=== PATIENT | male | born 1940 | race Caucasian/White ===

== ENCOUNTER 2024-12-27 17:24 | Inpatient (IN) | payer MEDICARE, SELFPAY ==
--- NOTE | ~2024-12-27 | CT_ITS ---
CLINICAL HISTORY: Abdominal pain, fever, vomiting CT abdomen and pelvis without contrast Comparison: None provided Findings: Limited evaluation without intravenous contrast. The lung bases are clear. Large hiatal hernia. The gallbladder is unremarkable. No significant biliary ductal dilatation. Unenhanced liver, spleen and pancreas within normal limits. Mild adrenal thickening on the right. Left adrenal is unremarkable. Bilateral severe hydronephrosis and hydroureter with no stones in the kidneys or along the course of the ureters. Bilateral perinephric stranding. Exophytic 5.7 cm cyst of the right kidney. Significantly distended urinary bladder extending above the umbilical level. Prostate enlarged and irregular and contains calcifications. No bowel obstruction, pneumoperitoneum, or pneumatosis. Moderate colonic and rectal stool suggestive of constipation no free fluid. Appendix not identified. No pericecal inflammation. Atherosclerotic vascular disease with no aneurysm of the abdominal aorta. No acute fracture. Degenerative changes of the spine. IMPRESSION: 1. Markedly distended urinary bladder with bilateral severe hydronephrosis and hydroureter with no ureteral stones. This could be due to bladder outlet obstruction. Correlate clinically. 2. Bilateral perinephric stranding. Superimposed infection not excluded. 3. Enlarged irregular prostate which is nonspecific, correlate with PSA level. 4. Pancolonic and rectal stool, correlate with constipation. 5. Large hiatal hernia and additional nonacute findings as described. This document has been electronically signed by: Janet Simmons MD on 12/27/2024 23:47:36
--- NOTE | ~2024-12-27 | XR_ITS ---
CLINICAL HISTORY: Constipation, abd pain 1 view abdomen Comparison: None provided Findings: Mildly dilated small bowel loops in mid abdomen. Moderate stool in the ascending colon in the rectum. No abnormal calcifications. Lung bases are clear. No acute fractures. IMPRESSION: 1. Moderate stool in ascending colon and rectum, correlate with constipation. 2. Mildly dilated small bowel loops in mid abdomen may represent mild ileus. This document has been electronically signed by: Janet Simmons MD on 12/27/2024 19:05:55
--- NOTE | ~2024-12-27 | XR_ITS ---
CLINICAL HISTORY: fever 1 view chest x-ray Comparison: None provided Findings: Normal size heart. No consolidation, significant pleural effusion or pneumothorax. Calcifications in left upper lobe. Hiatal hernia. No acute fracture. IMPRESSION: 1. No acute findings. This document has been electronically signed by: Janet Simmons MD on 12/27/2024 23:49:54
--- NOTE | ~2024-12-27 | CT_ITS ---
EXAMINATION: CT HEAD WITHOUT CONTRAST CLINICAL INFORMATION: Altered mental status COMPARISON: None available. TECHNIQUE: Contiguous axial imaging was performed from the skull base to vertex without intravenous administration of contrast. This CT examination was performed using dose optimization techniques as appropriate, variously including the following: *Automated exposure control *Adjustment of mA and/or kV according to patient size (this includes techniques or standardized protocols for targeted exams where dose is matched to indication/reason for exam; i.e. extremities or head) *Use of iterative reconstruction technique DLP: 802GY*cm FINDINGS: There is no acute ischemic change. There is no intracranial hemorrhage. There is no mass-effect or midline shift. There is mild generalized atrophy. Basal cisterns and ventricles are mildly prominent for cerebral volume. Orbits are symmetrical and unremarkable. Paranasal sinuses and mastoid air cells are pneumatized. There are no bony abnormalities. CT/CT head/brain wo IV con IMPRESSION: No acute intracranial abnormality. Mildly prominent ventricles relative to the a degree of mild atrophy Electronically signed by: Medardo Brantley MD 12/29/2024 11:21 AM EDT
[2024-12-27 17:55] VITALS: BP 192/102; PULSE 85; RESP 16; TEMP 35.9; O2SAT 99; BMI 24.1
--- NOTE | 2024-12-27 18:12 | ED_ITS ---
HPI - Abdominal Pain General Chief Complaint: Abdominal Pain Stated Complaint: Weakness, passed out, vomiting Time Seen by Provider: 12/27/24 21:58 Source: patient Mode of arrival: ambulatory Limitations: no limitations History of Present Illness ED Provider: Dr. Elvia Dickinson HPI narrative: Patient comes to the emergency room complaining of abdominal pain. Patient states that his stomach has been firm for couple of days. Denies having any bowel movements. According to the triage note, patient has been having vomiting, patient states that he has only been nauseous but has not had any vomiting. The patient Is poor historian. No family is at bedside at this time. Per triage note, seems that patient was lightheaded earlier today when they were shopping. Patient denies this. Patient's main complaint is abdominal discomfort. No diarrhea. Patient denies fever chills to his knowledge. Related Data Allergies Allergy/AdvReac Type Severity Reaction Status Date / Time No Known Allergies Allergy Verified 12/27/24 18:03 Review of Systems Review of Systems Constitutional : No Weight loss, No Fever, No Chills, No Night Sweats, No Fatigue, No Malaise ENT/Mouth : No Hearing loss, No Ear Pain, No Nasal Congestion, No Sinus Pain, No Hoarseness, No sore throat, No Rhinorrhea, No Swallowing Difficulty Eyes: No Eye Pain, No Swelling, No Redness, No Foreign Body, No Discharge, No Vision Changes Cardiovascular : No Chest Pain, No SOB, No Dyspnea on Exertion, No Orthopnea, No Edema, No Palpitations Respiratory : No Cough, No Sputum, No Wheezing, No Smoke Exposure, No Dyspnea Gastrointestinal : No Nausea, No Vomiting, No Diarrhea, No Constipation, No abdominal Pain, No Hematochezia, No Melena Genitourinary : Complaining of abdominal pain No Urinary Incontinence, No Urgency, No Flank Pain, No Urinary Flow Changes, No Hesitancy Musculoskeletal : No joint pain, No Myalgias, No Joint Swelling Skin : No Skin Lesions, No rash Neuro : No Weakness, No Numbness, No Paresthesias, No Loss of Consciousness, No Dizziness, No Headache Psych : No Anxiety/Panic, No Depression, No SI/HI/AH/VH, No Social Issues, Heme/Lymph: No Bruising, No Bleeding,No Lymphadenopathy Endocrine : No Polyuria, No Polydipsia, No Temperature Intolerance PMFSH Past Medical History Medical History Hyperlipidemia Hypertension Diabetes Social History Social History Smoked in Last 30 Days: No Use of substances other than those prescribed or required for medical reasons: No Advance Directives: No Advance Directives Information Provided: No Physical Exam ED Vital Signs: Vital Signs - 24 hr 12/27/24 17:55 12/27/24 21:36 12/27/24 22:45 Temperature 96.7 F L 101.4 F H 102.4 F H Pulse Rate 85 87 89 Respiratory Rate 16 16 18 Blood Pressure 192/102 H 171/94 H 157/83 H Pulse Oximetry 99 97 97 Oxygen Delivery Method Room Air Room Air Room Air 12/27/24 23:24 12/28/24 00:00 Temperature 100.4 F 99.1 F Pulse Rate 86 89 Respiratory Rate 17 14 Blood Pressure 167/81 H 160/74 H Pulse Oximetry 97 98 Oxygen Delivery Method Room Air Room Air BMI result Body Mass Index 24.1 Const Other: Appearance: Alert. Oriented X3. No acute distress. Eyes: Pupils equal, round and reactive to light. ENT: Pharynx normal. Neck: Normal inspection. Neck supple. No lymph nodes noted. No crepitus CVS: Normal heart rate and rhythm. Pulses normal. Normal S1 and S2 Respiratory: No respiratory distress. Breath sounds normal. No Wheezing. No rales Abdomen: Soft significantly distended, diffuse discomfort to palpation, no flank pain Skin: Skin warm and dry. Normal skin color. Normal skin turgor. Extremities: No lower extremity edema. No Lacerations. No Rash Neuro: Oriented X 3. No motor deficit. No sensory deficit. Moving all extremities. No slurred speech. CN 2 through 12 grossly intact Psych: calm, cooperative, normal affect Course Course Course Narrative: 12/27/241812 FEI Arellano This is a Rapid Medical Examination (RME) performed by Roman Anderson PA-C in triage. Full HPI, ROS, assessment and treatment plan per primary provider in the Main ED. Hx: 83 yo M hx of T2DM, HTN, HLD here for eval of constipation, vomiting, right sided abd pain, increased weakness which began while shopping today. no bm in 2 days. Plan: labs, kub, UA Medical Decision Making Medical Decision Making MDM Narrative: I was informed by the patient's nurse that the patient has a fever of 101.4, blood pressure 171/94. Patient's labs show normal white blood cell count, hemoglobin decreased at 9.0, hematocrit 27.5, platelets 131. We do not have any previous labs for comparison. Patient's creatinine shows a potassium of 5.8, BUN of 50, creatinine of 4.20. Normal LFTs, normal lipase . Urinalysis negative for UTI, serology negative KUB: Moderate stool in ascending colon and rectum Patient states that to his knowledge she has never been told that he has any issues with his kidneys. Given the patient's fever and elevated creatinine, at this time, 22:20, sepsis protocol will be started. Patient empirically being treated with IV fluids and ceftriaxone. Patient complained of dysuria earlier today CT of the abdomen shows a significantly distended bladder. This is likely the cause of patient's elevated creatinine. vazquez insterted, 3200 cc were obtained 00:30 FOCUS exam was done Differential Diagnosis Differential Diagnoses: The differential diagnosis associated with the presentation includes (UTI, pyelonephritis, pneumonia, SBO, urinary retention, bladder mass) Admission/Observation Consideration of admission/observation: Escalation of care including admission/observation considered Lab Data MDM Lab Attestation statement: I reviewed the patient's lab results. 12/27/24 18:34 12/27/24 18:34 Labs: Lab Results 12/27/24 12/27/24 12/27/24 Range/Units 18:34 21:38 22:42 WBC 8.0 (4.8-10.8) X10*3/uL RBC 2.91 L (4.60-5.80) X10*6/uL Hgb 9.0 L (14.0-18.0) g/dl Hct 27.5 L (42.0-52.0) % MCV 94.5 (80.0-98.0) fL MCH 30.9 (27.0-33.0) pg MCHC 32.7 (31.0-36.0) g/dl RDW 12.7 (11.0-16.0) % Plt Count 131 L (160-400) X10*3/uL MPV 11.3 (9.4-12.4) fL Immature Gran % (Auto) 0.3 (0.0-0.4) % Neut % (Auto) 82.1 H (45-73) % Lymph % (Auto) 11.9 L (20-40) % [place] % (Auto) 5.0 (2-11) % Eos % (Auto) 0.3 (0-4) % Baso % (Auto) 0.4 (0-2) % Lymph # (Auto) 1.0 L (1.2-4.9) X10*3/uL [place] # (Auto) 0.4 (0.1-1.2) X10*3/uL Eos # (Auto) 0.0 (0.0-0.4) X10*3/uL Baso # (Auto) 0.0 (0.0-0.2) X10*3/uL Abs Immat Gran (auto) 0.02 (0.00-0.03) X10*3/uL Absolute Neuts (auto) 6.5 (2.0-8.3) x10*3/uL Absolute Nucleated RBC 0.000 (0.0-0.012) X10*3/uL Nucleated RBC % (auto) 0.0 (0.0-0.2) /100WBC Sodium 141 (135-145) mmol/L Potassium 5.8 H (3.3-5.1) mmol/L Chloride 112 H (96-108) mmol/L Carbon Dioxide 16 L (22-29) mmol/L Anion Gap 19 (12-20) BUN 50 H (9-16) mg/dL Creatinine 4.20 H* (0.5-1.4) mg/dL Estim Creat Clear Calc 15.1 Estimated GFR 14 Random Glucose 115 (60-115) mg/dL Lactic Acid 1.1 (0.5-2.0) mmol/L Calcium 9.7 (8.4-10.2) mg/dL Magnesium 2.1 (1.6-2.6) mg/dL Total Bilirubin 0.5 (0.0-1.0) mg/dL AST 29 (5-37) U/L ALT 13 (0-40) U/L Alkaline Phosphatase 51 (39-117) U/L Total Protein 8.3 H (6.5-8.0) g/dL Albumin 4.8 (3.5-5.0) g/dL Lipase 71 (8-78) U/L Urine Color Yellow Urine Appearance Clear Urine pH 6.5 (5.0-9.0) Ur Specific [place] 1.010 (1.005-1.025) Urine Protein 30 (1+) H (Neg-Trace) mg/dL Urine Glucose (UA) Negative (Negative) mg/dL Urine Ketones Negative (Negative) mg/dL Urine Blood Negative (Negative) Urine Nitrite Negative (Negative) Ur Leukocyte Esterase Trace H (Negative) Urine RBC 0-2 (0-2) /HPF Urine WBC 0-5 (0-5) /HPF Ur Squamous Epith Cells 0-2 (0-2) /HPF Urine Bacteria None Seen (None Seen) Hyaline Casts 0-2 (0-2) /LPF Influenza Type A (PCR) NEGATIVE (Negative) Influenza Type B (PCR) NEGATIVE (Negative) RSV RNA Qual (PCR) NEGATIVE (Negative) SARS-CoV-2 RNA (RT-PCR) NEGATIVE (Negative) Medications Administered Discontinued Medications Generic Name Dose Route Start Last Admin Trade Name Sudhakarq PRN Reason Stop Dose Admin Ceftriaxone Sodium 1 gm 12/27/24 22:06 12/27/24 22:45 Ceftriaxone Sodium 1 Gm Vial IVPUSH 12/27/24 22:07 1 gm ONCE ONE Administration Sodium Chloride 2,422.17 mls @ 2,422.17 mls/hr 12/27/24 22:06 12/27/24 22:45 Ns 30 ml/kg infuse over 1 hr (2422.17 ml) 12/27/24 23:05 2,422.17 mls/hr IV Administration .Q1H STA Lidocaine HCl 10 ml 12/27/24 22:30 12/27/24 22:35 Lidocaine Hcl 2 % Urojet 10 Ml Jel.Pf.[place] TOPICAL 12/27/24 22:31 10 ml ONCE ONE Administration Critical Care Time Critical Care Time Critical Care Time: Yes Total Critical Care Time: 60 Attestation: I have personally provided critical care time. Time includes review of lab data, radiology results, discussion with consultants, and monitoring for potential decompensation. Intervention performed as documented. Discharge Plan Discharge Clinical Impression: LUDIN (acute kidney injury), Abdominal pain, Acute hyperkalemia, Acute urinary retention Patient Disposition: Admitted As Inpatient Print Language: Korean
[2024-12-27 18:39] LABS: MANUAL DIFF FLAG NO
[2024-12-27 18:50] LABS: Hematocrit 27.5 % (42.0-52.0); Hemoglobin 9.0 g/dl (14.0-18.0); Imm Gran Abs Auto 0.02 X10*3/uL (0.00-0.03); Imm Gran Pct Auto 0.3 % (0.0-0.4); Lymphocytes Absolute Auto 1.0 X10*3/uL (1.2-4.9); Mean Corpuscular HGB Conc 32.7 g/dl (31.0-36.0); Mean Corpuscular Hemoglobin 30.9 pg (27.0-33.0); Mean Corpuscular Volume 94.5 fL (80.0-98.0); NRBC Abs Auto 0.000 X10*3/uL (0.0-0.012); NRBC Pct Auto 0.0 /100WBC (0.0-0.2); Platelet Count 131 X10*3/uL (160-400); Red Blood Count 2.91 X10*6/uL (4.60-5.80); White Blood Count 8.0 X10*3/uL (4.8-10.8)
--- NOTE | 2024-12-27 19:10 | PC.NURSE ---
Critical lab taken for patient - creatinine 4.2, Pit provider Teresa made aware.
[2024-12-27 19:11] LABS: Alanine Aminotransferase 13 U/L (0-40); Albumin Level 4.8 g/dL (3.5-5.0); Alkaline Phosphatase 51 U/L (39-117); Anion Gap 19 (12-20); Aspartate Amino Transferase 29 U/L (5-37); Blood Urea Nitrogen 50 mg/dL (9-16); Calcium 9.7 mg/dL (8.4-10.2); Carbon Dioxide 16 mmol/L (22-29); Chloride 112 mmol/L (96-108); Creatinine Clr Calc Pharmacy 15.1; Estimated Glomerular Filt Rate 14; Lipase 71 U/L (8-78); Magnesium 2.1 mg/dL (1.6-2.6); Potassium 5.8 mmol/L (3.3-5.1); Sodium 141 mmol/L (135-145); Total Protein 8.3 g/dL (6.5-8.0)
[2024-12-27 19:37] LABS: Resp Syncy Virus RNA Qual PCR NEGATIVE (Negative); SARS COV2 PCR INHOUSE NEGATIVE (Negative)
[2024-12-27 21:36] VITALS: BP 171/94; PULSE 87; RESP 16; TEMP 38.6; O2SAT 97
[2024-12-27 21:47] LABS: Appearance Urine Clear; Glucose Urine UA Negative (Negative); PH 6.5 (5.0-9.0); Specific Gravity - Urine 1.010 (1.005-1.025); UMIC TRIGGER UACC YES
--- NOTE | 2024-12-27 22:33 | ECG_ITS ---
Test Reason : HYPER K Blood Pressure : */* mmHG Vent. Rate : 89 BPM Atrial Rate : 89 BPM P-R Int : 152 ms QRS Dur : 92 ms QT Int : 362 ms P-R-T Axes : 59 22 47 degrees QTcB Int : 440 ms Normal sinus rhythm Normal ECG No previous ECGs available Referred By: Elvia Dickinson Electronically Signed By: EMIL MATA
[2024-12-27] MEDS: Lidocaine HCl 2 % Urojet 10 ML JEL.PF.APP TOPICAL (22:35)
[2024-12-27 22:45] VITALS: BP 157/83; PULSE 89; RESP 18; TEMP 39.1; O2SAT 97
[2024-12-27] MEDS: SODIUM CHLORIDE 2422.17 ML IV (22:45)
[2024-12-27 23:24] VITALS: BP 167/81; PULSE 86; RESP 17; TEMP 38; O2SAT 97
--- NOTE | 2024-12-27 23:24 | PC.NURSE ---
this rn assumed care of pt at this time, vazquez remains draining at this time, vital signs updated, pt offers no complaints at this time. fluids administering per mar
[2024-12-28] VITALS (14 sets, daily range): BP systolic 119–160; BP diastolic 58–89; PULSE 68–98; RESP 14–20; TEMP 36.2–37.4; O2SAT 96–100; BMI 22.8
--- NOTE | 2024-12-28 00:11 | PC.NURSE ---
20g placed in right forearm, pt assisted in bed change noted to have small bm.
--- NOTE | 2024-12-28 00:44 | PM.IMHP ---
History of Present Illness Date of Service: 12/28/24 Chief Complaint: Abd pain This is a 84-year-old male with pertinent history of mld-pxdimim-aowlzcbiu diabetes mellitus, hypertension, mixed hyperlipidemia who presents to the emergency department for evaluation of abdominal pain and difficulty urinating. Patient is a poor historian. History obtained with the help of ER provider and chart review. Patient states he has been having abdominal pain and difficulty with urination. Also has been having difficulty with bowel movements. States he is able to pee only a little bit at a time. Denies nausea or vomiting. Unable to obtain complete review of systems. In the emergency department, serum creatinine found to be 4.2 and potassium 5.8. Imaging with bilateral severe hydronephrosis and hydroureter. Review of Systems Review of Systems: Yes Unobtainable due to mental status [facility] Medical History Hyperlipidemia Hypertension Diabetes Pertinent family history: Unable to obtain Social History Smoked in Last 30 Days: No Use of substances other than those prescribed or required for medical reasons: No Advance Directives: No Advance Directives Information Provided: No Meds Allergies Allergy/AdvReac Type Severity Reaction Status Date / Time No Known Allergies Allergy Verified 12/27/24 18:03 Physical Exam Vital Signs and Narrative: Vital Signs: Last Vital Signs Temp 99.1 F 12/28/24 00:00 Pulse 89 12/28/24 00:00 Resp 14 12/28/24 00:00 BP 160/74 H 12/28/24 00:00 Pulse Ox 98 12/28/24 00:00 O2 Del Method Room Air 12/28/24 00:00 BMI result Body Mass Index 24.1 Elderly male lying in bed in no distress Neck supple, no JVD Regular rate and rhythm, S1-S2 heard Regular breath sounds bilaterally, no wheezing or crackles appreciated Abdomen mood distention, no rigidity, no tenderness Patient is awake, alert and oriented x2 ; no focal motor deficit Psych: Normal mood No pedal edema Results Labs 12/27/24 18:34 12/27/24 18:34 Labs: Laboratory Results - last 24 hr 12/27/24 12/27/24 12/27/24 18:34 21:38 22:42 MCV 94.5 MCH 30.9 MCHC 32.7 RDW 12.7 Plt Count 131 L MPV 11.3 Immature Gran % (Auto) 0.3 Neut % (Auto) 82.1 H Lymph % (Auto) 11.9 L [place] % (Auto) 5.0 Eos % (Auto) 0.3 Baso % (Auto) 0.4 Lymph # (Auto) 1.0 L [place] # (Auto) 0.4 Eos # (Auto) 0.0 Baso # (Auto) 0.0 Abs Immat Gran (auto) 0.02 Absolute Neuts (auto) 6.5 Absolute Nucleated RBC 0.000 Nucleated RBC % (auto) 0.0 Anion Gap 19 Estim Creat Clear Calc 15.1 Estimated GFR 14 Random Glucose 115 Lactic Acid 1.1 Calcium 9.7 Magnesium 2.1 Total Bilirubin 0.5 AST 29 ALT 13 Alkaline Phosphatase 51 Total Protein 8.3 H Albumin 4.8 Lipase 71 Urine Color Yellow Urine Appearance Clear Urine pH 6.5 Ur Specific [place] 1.010 Urine Protein 30 (1+) H Urine Glucose (UA) Negative Urine Ketones Negative Urine Blood Negative Urine Nitrite Negative Ur Leukocyte Esterase Trace H Urine RBC 0-2 Urine WBC 0-5 Ur Squamous Epith Cells 0-2 Urine Bacteria None Seen Hyaline Casts 0-2 Influenza Type A (PCR) NEGATIVE Influenza Type B (PCR) NEGATIVE RSV RNA Qual (PCR) NEGATIVE SARS-CoV-2 RNA (RT-PCR) NEGATIVE Assessment and Plan (1) LUDIN (acute kidney injury): Status: Acute (2) Acute urinary retention: Status: Acute (3) Acute hyperkalemia: Status: Acute Plan This is a 84-year-old male with pertinent history of zkn-nuabjrb-zlsksdwat diabetes mellitus, hypertension, mixed hyperlipidemia who presents to the emergency department for evaluation of abdominal pain and difficulty urinating. #. Severe bilateral hydronephrosis and hydroureter due to bladder outlet obstruction: Whyte inserted in the ER with drainage of 3200 cc of urine. Consulting Urology. Initiated Flomax #. Elevated creatinine: Acute kidney injury (likely), post renal versus CKD: Unknown baseline. Monitor and avoid nephrotoxins #. Hyperkalemia in the setting of above. Given temporizing measures in the ER #. Constipation: Ordered Dulcolax suppository. May need enema in a.m. #. Tte-oisopeg-kkhosetik type 2 diabetes mellitus: Initiating Accu-Cheks sliding scale insulin #. Mixed hyperlipidemia: On statin #. Hypertension: Hold lisinopril in the setting of LUDIN Med rec pending DVT prophylaxis: Heparin Full code. Discussed with patient at bedside Admit as inpatient and will require two night minimum hospital stay for monitoring of kidney function, electrolytes (as above), which is not possible in a lesser acute setting. Quality Stroke Does the patient have a stroke diagnosis?: No VTE Prior VTE?: No VTE Risk Level:: Medical - moderate - high VTE Device Contraindication: Treatment Not Indicated VTE Drug Contraindication: N/A - Med Ordered
[2024-12-28] MEDS: Calcium Gluconate/NaCl,Iso-Osm 2 GM/100 ML PLAST..BAG IV (01:07)
[2024-12-28 01:16] LABS: Glucose, Whole Blood 109 mg/dL (60-115)
--- NOTE | 2024-12-28 01:22 | PC.NURSE ---
iv fluids continue to administer at this time, vss. pt medicated per mar.
--- NOTE | 2024-12-28 01:27 | PC.NURSE ---
at bedside with pt and pt family member
[2024-12-28 01:39] LABS: Glucose, Whole Blood 142 mg/dL (60-115)
--- NOTE | 2024-12-28 02:17 | PC.NURSE ---
pt urine output noted to be red. aware at this time. vss
--- NOTE | 2024-12-28 03:25 | MHC.EDTECH ---
This tech assumed care of pt at 0300am, rounded and introduced self to pt, vitals taken, patient appears comfortable,call choudhury in reach
[2024-12-28 04:55] LABS: Glucose, Whole Blood 97 mg/dL (60-115)
[2024-12-28 05:07] LABS: MANUAL DIFF FLAG NO
[2024-12-28 05:09] LABS: Hematocrit 25.8 % (42.0-52.0); Hemoglobin 8.6 g/dl (14.0-18.0); Imm Gran Abs Auto 0.03 X10*3/uL (0.00-0.03); Imm Gran Pct Auto 0.4 % (0.0-0.4); Lymphocytes Absolute Auto 1.2 X10*3/uL (1.2-4.9); Mean Corpuscular HGB Conc 33.3 g/dl (31.0-36.0); Mean Corpuscular Hemoglobin 31.5 pg (27.0-33.0); Mean Corpuscular Volume 94.5 fL (80.0-98.0); NRBC Abs Auto 0.000 X10*3/uL (0.0-0.012); NRBC Pct Auto 0.0 /100WBC (0.0-0.2); Platelet Count 126 X10*3/uL (160-400); Red Blood Count 2.73 X10*6/uL (4.60-5.80); White Blood Count 7.0 X10*3/uL (4.8-10.8)
[2024-12-28 05:28] LABS: Anion Gap 16 (12-20); Blood Urea Nitrogen 49 mg/dL (9-16); Calcium 9.1 mg/dL (8.4-10.2); Carbon Dioxide 17 mmol/L (22-29); Chloride 117 mmol/L (96-108); Creatinine Clr Calc Pharmacy 15.8; Estimated Glomerular Filt Rate 15; Potassium 4.9 mmol/L (3.3-5.1); Sodium 145 mmol/L (135-145)
[2024-12-28 06:08] LABS: Glucose, Whole Blood 103 mg/dL (60-115)
--- NOTE | 2024-12-28 06:12 | MHC.EDTECH ---
Rounds and vitals completed,emptied 1000MLS from Whyte, urine is bloody, RN aware
--- NOTE | 2024-12-28 06:32 | PC.NURSE ---
provider contacted via [employer] connect with image of pt urine color being bright red, provider remains aware and no new orders at this time
[2024-12-28 08:13] LABS: Glucose, Whole Blood 107 mg/dL (60-115)
[2024-12-28] MEDS: 0.9 % Sodium Chloride Flush 3 ML SYRINGE IVFLUSH ×3 (08:47→20:26)
--- NOTE | 2024-12-28 11:31 | PHA.MEDREC ---
Pharmacy Consult ? Medication Reconciliation Pharmacy has completed the medication reconciliation.Spoke with patients patient and his son. Son brought in med list.Notified provider med rec complete
[2024-12-28 11:39] LABS: Glucose, Whole Blood 141 mg/dL (60-115)
--- NOTE | 2024-12-28 13:59 | PM.EVENT ---
Event Note Date of Service: 12/28/24 Event Note: Pt seen examined, presented with urinary retention x 3 days, found to have large volume retention, LUDIN, vazquez inserted. Pending uro consult, also adding Nephro consult, track daily creatine Time Spent With Patient Time: Total time managing care of this patient today ____ minutes.
--- NOTE | 2024-12-28 14:30 | PM.CNNEP ---
History of Present Illness Reason for Consult Consult date: 12/28/24 Chief Complaint Chief complaint: Abd pain History of Present Illness Narrative: 84 y/o male with a medical history of diabetes, HTN, mixed HLD. Presented 12/27 with abdominal pain and urinary retention x3 days. Nephrology consulted for LUDIN. serum creatinine 4.2 and potassium 5.8 on presentation 6pm 12/27 CT abdomen/pelvis with bilateral, severe hydronephrosis and hydroureter without stones. Bilateral perinephritic stranding. Enlarged, irregular prostate. vazquez catheter inserted, drained 3200mL urine. Creatinine 6 hours later was slightly improved at 3.94. Patient reports he is feeling much better since urine was drained. Denies symptoms/complaints at this time. States he is not aware of having any baseline kidney disease. Sees his PCP every 6 months per pt and family. Review of Systems Review of Systems Yes all other systems are reviewed and are negative PMFSH Past Medical History Medical History Hyperlipidemia Hypertension Diabetes Social History Social History Patient Tobacco Use Status: Never used Tobacco Smoked in Last 30 Days: No Use of substances other than those prescribed or required for medical reasons: No Advance Directives: No Advance Directives Information Provided: No Meds Allergies Allergy/AdvReac Type Severity Reaction Status Date / Time No Known Allergies Allergy Verified 12/27/24 18:03 Active Medications: Current Medications Acetaminophen (Acetaminophen 325 Mg Tablet) 650 mg PO Q6H PRN PRN Reason: Pain, Mild 1-3,fever,headache Atorvastatin Calcium (Atorvastatin Calcium 80 Mg Tablet) 80 mg PO BEDTIME [facility] Calcium Carbonate (Calcium Carbonate 750 Mg Tab.Chew) 750 mg PO Q4H PRN PRN Reason: Heartburn Carvedilol (Carvedilol 12.5 Mg Tablet) 12.5 mg PO DAILY [facility]; Protocol Ceftriaxone Sodium (Ceftriaxone Sodium 1 Gm Vial) 1 gm IVPUSH Q24H [facility] Dextrose (Dextrose 50 % 25 Gm/50 Ml Syringe) 25 gm IVPUSH Q15M PRN; Protocol PRN Reason: per Hypoglycemia Standing Ord. Glucose (Glucose Gel 15 Gm Gel..Gram.) 15 gm PO Q15M PRN; Protocol PRN Reason: per Hypoglycemia Standing Ord. Heparin Sodium (Porcine) (Heparin Sodium,Porcine 5,000 Unit/Ml Vial) 5,000 unit SUBCUT Q12H [facility] Last Admin: 12/28/24 08:47 Dose: 5,000 unit Insulin Human Lispro (Insulin Lispro 100 Unit/Ml 3 Ml Vial) 0 unit SUBCUT QIDACHS [facility]; Protocol Last Admin: 12/28/24 12:11 Dose: Not Given Latanoprost (Latanoprost 0.005 % Ophth [place] 2.5 Ml Drops) 1 drop EYE-BOTH DAILY [facility] Magnesium Hydroxide (Milk Of Magnesia 30 Ml Oral.Susp) 30 ml PO DAILY PRN PRN Reason: Constipation Melatonin (Melatonin 3 Mg Tablet) 6 mg PO BEDTIME PRN PRN Reason: Insomnia Ondansetron HCl (Ondansetron Hcl 4 Mg/2 Ml Vial) 4 mg IVPUSH Q8H PRN PRN Reason: Nausea and Vomiting Sodium Chloride (0.9 % Sodium Chloride Flush 3 Ml Syringe) 3 ml IVFLUSH QSHIFT [facility] Last Admin: 12/28/24 08:47 Dose: 3 ml Tamsulosin HCl (Tamsulosin Hcl 0.4 Mg Capsule) 0.4 mg PO BEDTIME [facility] Last Admin: 12/28/24 01:06 Dose: 0.4 mg Home Medications ?Medication ?Instructions ?Recorded ?Confirmed ?Last Taken ?Type aspirin 81 mg tablet,delayed 81 mg PO DAILY 12/28/24 12/28/24 12/27/24 History release carvedilol 12.5 mg tablet 12.5 mg PO DAILY 12/28/24 12/28/24 12/27/24 History latanoprost 0.005 % eye drops 1 drp ophthalmic (eye) DAILY 12/28/24 12/28/24 12/27/24 History lisinopril 40 mg tablet 40 mg PO DAILY 12/28/24 12/28/24 12/27/24 History metformin 1,000 mg tablet 1,000 mg PO BIDWM 12/28/24 12/28/24 12/27/24 History rosuvastatin 20 mg tablet 20 mg PO BEDTIME 12/28/24 12/28/24 12/27/24 History Physical Exam Vital Signs: Last Vital Signs Temp 97.1 F 12/28/24 11:04 Pulse 91 12/28/24 11:04 Resp 14 12/28/24 11:04 BP 137/89 12/28/24 11:04 Pulse Ox 97 12/28/24 11:04 O2 Del Method Room Air 12/28/24 11:04 BMI result Body Mass Index 24.1 Const General: no acute distress, alert and awake Resp Effort & Inspection: normal respiratory effort and able to speak in complete sentences Auscultation: clear to auscultation bilaterally Cardio Rate: regular rate Rhythm: regular rhythm Heart sounds: S1 normal heart sound present and S2 normal heart sound present GI Palpation (GI): Soft to palpation and nontender General: Yes no CVA tenderness Back/Spine/Pelvis Back: no CVA tenderness Skin Rashes: no rashes Extrem General: No edema Results Lab Results 12/28/24 04:37 12/28/24 04:37 Lab results: Chemistry 12/27/24 12/28/24 18:34 04:37 Sodium 141 145 Potassium 5.8 H 4.9 Carbon Dioxide 16 L 17 L BUN 50 H 49 H Creatinine 4.20 H* 3.94 H Calcium 9.7 9.1 D Hematology 12/27/24 12/28/24 18:34 04:37 WBC 8.0 7.0 Hgb 9.0 L 8.6 L Plt Count 131 L 126 L Urinalysis 12/27/24 21:38 Urine Color Yellow Urine Appearance Clear Urine pH 6.5 Ur Specific [place] 1.010 Urine Protein 30 (1+) H Urine Glucose (UA) Negative Urine Ketones Negative Urine Blood Negative Urine Nitrite Negative Ur Leukocyte Esterase Trace H Urine RBC 0-2 Urine WBC 0-5 Ur Squamous Epith Cells 0-2 Hyaline Casts 0-2 Assessment and Plan (1) LUDIN (acute kidney injury): Status: Acute (2) Acute urinary retention: Status: Acute Plan LUDIN likely postrenal from urinary retention improving. unknown baseline renal function- pt is unaware of any exisitng renal disease. Anticipate continued improvement in renal function now that bladder has emptied. Urology consult is in per Hospital medicine. recommend repeat renal function and electrolyte studies in the morning avoid nephrotoxins continue supportive care Procedures Date of Service Date of Service: 12/28/24
--- NOTE | 2024-12-28 16:00 | PM.UROCN ---
History of Present Illness Consult details Consult date: 12/28/24 Narrative: CC: Urinary retention with LUDIN 84-year-old [place]-speaking male Past medical history significant for qcl-qgiesfx-zakakbefb diabetes, hypertension Presents to emergency room with 3 day history of poor urine output Laboratories creatinine 4.2, potassium 5.8 CT imaging 1. Markedly distended urinary bladder with bilateral severe hydronephrosis and hydroureter with no ureteral stones. This could be due to bladder outlet obstruction. Correlate clinically. 2. Bilateral perinephric stranding. Superimposed infection not excluded. 3. Enlarged irregular prostate which is nonspecific, correlate with PSA level Whyte catheter placed with 2 L output Initiate alpha-keith and finasteride Whyte catheter to remain minimum 4 weeks with outpatient voiding trial Once creatinine has normalized recommend use of blue plug to minimize catheter trauma and emptying every 4 hours Repeat imaging 48 hours to ensure resolution of hydronephrosis Review of Systems Constitutional: Constitutional: Reports as per HPI and Reports no additional constitutional complaints Cardiovascular: Cardiovascular: Reports as per HPI and Reports no additional cardiovascular complaints Respiratory: Respiratory: Reports as per HPI and Reports no additional respiratory complaints Gastrointestinal: Gastrointestinal: Reports as per HPI and Reports no additional gastrointestinal complaints Genitourinary: Genitourinary: Reports as per HPI Musculoskeletal: Musculoskeletal: Reports no additional musculoskeletal complaints and Reports as per HPI Neurologic: Reports system reviewed and no additional complaints, except as documented and Reports as per HPI PMF Past Medical History Medical History Hyperlipidemia Hypertension Diabetes Social History Social History Patient Tobacco Use Status: Never used Tobacco Smoked in Last 30 Days: No Use of substances other than those prescribed or required for medical reasons: No Advance Directives: No Advance Directives Information Provided: No Meds Allergies Allergy/AdvReac Type Severity Reaction Status Date / Time No Known Allergies Allergy Verified 12/27/24 18:03 Active Medications: Current Medications Acetaminophen (Acetaminophen 325 Mg Tablet) 650 mg PO Q6H PRN PRN Reason: Pain, Mild 1-3,fever,headache Atorvastatin Calcium (Atorvastatin Calcium 80 Mg Tablet) 80 mg PO BEDTIME [facility] Calcium Carbonate (Calcium Carbonate 750 Mg Tab.Chew) 750 mg PO Q4H PRN PRN Reason: Heartburn Carvedilol (Carvedilol 12.5 Mg Tablet) 12.5 mg PO DAILY [facility]; Protocol Ceftriaxone Sodium (Ceftriaxone Sodium 1 Gm Vial) 1 gm IVPUSH Q24H [facility] Dextrose (Dextrose 50 % 25 Gm/50 Ml Syringe) 25 gm IVPUSH Q15M PRN; Protocol PRN Reason: per Hypoglycemia Standing Ord. Glucose (Glucose Gel 15 Gm Gel..Gram.) 15 gm PO Q15M PRN; Protocol PRN Reason: per Hypoglycemia Standing Ord. Heparin Sodium (Porcine) (Heparin Sodium,Porcine 5,000 Unit/Ml Vial) 5,000 unit SUBCUT Q12H [facility] Last Admin: 12/28/24 08:47 Dose: 5,000 unit Insulin Human Lispro (Insulin Lispro 100 Unit/Ml 3 Ml Vial) 0 unit SUBCUT QIDACHS [facility]; Protocol Last Admin: 12/28/24 12:11 Dose: Not Given Latanoprost (Latanoprost 0.005 % Ophth [place] 2.5 Ml Drops) 1 drop EYE-BOTH DAILY [facility] Magnesium Hydroxide (Milk Of Magnesia 30 Ml Oral.Susp) 30 ml PO DAILY PRN PRN Reason: Constipation Melatonin (Melatonin 3 Mg Tablet) 6 mg PO BEDTIME PRN PRN Reason: Insomnia Ondansetron HCl (Ondansetron Hcl 4 Mg/2 Ml Vial) 4 mg IVPUSH Q8H PRN PRN Reason: Nausea and Vomiting Sodium Chloride (0.9 % Sodium Chloride Flush 3 Ml Syringe) 3 ml IVFLUSH QSHIFT [facility] Last Admin: 12/28/24 08:47 Dose: 3 ml Tamsulosin HCl (Tamsulosin Hcl 0.4 Mg Capsule) 0.4 mg PO BEDTIME [facility] Last Admin: 12/28/24 01:06 Dose: 0.4 mg Home Medications ?Medication ?Instructions ?Recorded ?Confirmed ?Last Taken ?Type aspirin 81 mg tablet,delayed 81 mg PO DAILY 12/28/24 12/28/24 12/27/24 History release carvedilol 12.5 mg tablet 12.5 mg PO DAILY 12/28/24 12/28/24 12/27/24 History latanoprost 0.005 % eye drops 1 drp ophthalmic (eye) DAILY 12/28/24 12/28/24 12/27/24 History lisinopril 40 mg tablet 40 mg PO DAILY 12/28/24 12/28/24 12/27/24 History metformin 1,000 mg tablet 1,000 mg PO BIDWM 12/28/24 12/28/24 12/27/24 History rosuvastatin 20 mg tablet 20 mg PO BEDTIME 12/28/24 12/28/24 12/27/24 History Physical Exam Vital Signs: Vital Signs: Last Vital Signs Temp 97.1 F 12/28/24 11:04 Pulse 91 12/28/24 11:04 Resp 14 12/28/24 11:04 BP 137/89 12/28/24 11:04 Pulse Ox 97 12/28/24 11:04 O2 Del Method Room Air 12/28/24 11:04 BMI result Body Mass Index 24.1 Const: General: cooperative, healthy appearing, comfortable and no acute distress Orientation/consciousness: patient oriented x3 HEENT: Face and sinus: Yes normal facial exam Mouth: moist mucous membranes Neck: Neck: Yes normal visual inspection, Yes full ROM and Yes trachea midline Chest: Chest palpation & inspection: normal inspection of the chest Resp: Effort & Inspection: normal respiratory effort, able to speak in complete sentences and no respiratory distress GI: Inspection: Yes normal to inspection Back/Spine/Pelvis: Cervical Spine: normal cervical lordosis Thoracic/Lumbar Spine: thoracic and lumbar spine normal to inspection Skin: General skin exam: no rashes or lesions noted Neuro: General: patient oriented x3, tone normal and moves all extremities Extrem: General: Yes normal to inspection and Yes capillary refill normal Results Labs 12/28/24 04:37 12/28/24 04:37 Labs: Abnormal lab results 12/27/24 12/27/24 12/28/24 Range/Units 18:34 21:38 01:35 RBC 2.91 L (4.60-5.80) X10*6/uL Hgb 9.0 L (14.0-18.0) g/dl Hct 27.5 L (42.0-52.0) % Plt Count 131 L (160-400) X10*3/uL Neut % (Auto) 82.1 H (45-73) % Lymph % (Auto) 11.9 L (20-40) % Lymph # (Auto) 1.0 L (1.2-4.9) X10*3/uL Potassium 5.8 H (3.3-5.1) mmol/L Chloride 112 H (96-108) mmol/L Carbon Dioxide 16 L (22-29) mmol/L BUN 50 H (9-16) mg/dL Creatinine 4.20 H* (0.5-1.4) mg/dL POC Glucose 142 H (60-115) mg/dL Total Protein 8.3 H (6.5-8.0) g/dL Urine Protein 30 (1+) H (Neg-Trace) mg/dL Ur Leukocyte Esterase Trace H (Negative) 12/28/24 12/28/24 Range/Units 04:37 11:36 RBC 2.73 L (4.60-5.80) X10*6/uL Hgb 8.6 L (14.0-18.0) g/dl Hct 25.8 L (42.0-52.0) % Plt Count 126 L (160-400) X10*3/uL Neut % (Auto) 74.2 H (45-73) % Lymph % (Auto) 16.6 L (20-40) % Lymph # (Auto) (1.2-4.9) X10*3/uL Potassium (3.3-5.1) mmol/L Chloride 117 H (96-108) mmol/L Carbon Dioxide 17 L (22-29) mmol/L BUN 49 H (9-16) mg/dL Creatinine 3.94 H (0.5-1.4) mg/dL POC Glucose 141 H (60-115) mg/dL Total Protein (6.5-8.0) g/dL Urine Protein (Neg-Trace) mg/dL Ur Leukocyte Esterase (Negative) Short CBC 12/27/24 12/28/24 Range/Units 18:34 04:37 WBC 8.0 7.0 (4.8-10.8) X10*3/uL Hgb 9.0 L 8.6 L (14.0-18.0) g/dl Hct 27.5 L 25.8 L (42.0-52.0) % Plt Count 131 L 126 L (160-400) X10*3/uL BMP 12/27/24 12/28/24 18:34 04:37 Sodium 141 145 Potassium 5.8 H 4.9 Chloride 112 H 117 H Carbon Dioxide 16 L 17 L BUN 50 H 49 H Creatinine 4.20 H* 3.94 H Calcium 9.7 9.1 D Liver Function 12/27/24 Range/Units 18:34 Total Bilirubin 0.5 (0.0-1.0) mg/dL AST 29 (5-37) U/L ALT 13 (0-40) U/L Alkaline Phosphatase 51 (39-117) U/L Albumin 4.8 (3.5-5.0) g/dL Urine 12/27/24 Range/Units 21:38 Urine Color Yellow Urine Appearance Clear Urine pH 6.5 (5.0-9.0) Ur Specific [place] 1.010 (1.005-1.025) Urine Protein 30 (1+) H (Neg-Trace) mg/dL Urine Glucose (UA) Negative (Negative) mg/dL All other labs normal. Assessment and Plan (1) Acute urinary retention: Status: Acute (2) LUDIN (acute kidney injury): Status: Acute Plan Alpha-keith and finasteride Whyte catheter to remain to drainage till normalization of creatinine Outpatient follow-up 4 weeks for voiding trial Procedures Date of Service Date of Service: 12/28/24
[2024-12-28 16:21] LABS: Glucose, Whole Blood 129 mg/dL (60-115)
--- NOTE | 2024-12-28 16:28 | MHC.CM.PN ---
PT REPORTS HE LIVES WITH HIS AND IS INDEPENDENT WITH CARE HE DENIES USE OF DME OR SERVICES HE SAYS HE HAS A HCP WITH HIS SON AND HIS AGENTS, COPY REQUESTED PCP: [facility] DELIVERED DCP: HOME VIA FAMILY TRANSPORT
[2024-12-28 20:28] LABS: Glucose, Whole Blood 137 mg/dL (60-115)
[2024-12-29] VITALS (10 sets, daily range): BP systolic 98–157; BP diastolic 59–83; PULSE 71–96; RESP 16–20; TEMP 36.1–37.8; O2SAT 97–100
--- NOTE | 2024-12-29 | EEG_ITS ---
This is a 16 channel EEG with an EKG lead. Patient is reported awake during the tracing. Background EEG rhythm is in theta range low to medium amplitude with no obvious asymmetry or paroxysmal tendency. Almost continuous muscle and lead artifacts are noted. No obvious sharp waves or spikes are noted. Cardiac lead does not reveal any significant abnormality. Photic stimulation does not produce any significant driving. Impression: Somewhat limited EEG but not revealing any epileptic discharges. Generalized slowing was noted. MTDD
--- NOTE | 2024-12-29 | ECG_ITS ---
Test Reason : rapid response Blood Pressure : */* mmHG Vent. Rate : 86 BPM Atrial Rate : 86 BPM P-R Int : 152 ms QRS Dur : 84 ms QT Int : 342 ms P-R-T Axes : 74 42 55 degrees QTcB Int : 409 ms Normal sinus rhythm Normal ECG When compared with ECG of 27-Dec-2024 23:20, No significant change was found Referred By: [facility] Electronically Signed By: EMIL MATA
[2024-12-29] MEDS: OLANZapine 10 MG VIAL 5 MG IM (00:21)
[2024-12-29 06:34] LABS: Alanine Aminotransferase 9 U/L (0-40); Albumin Level 3.9 g/dL (3.5-5.0); Alkaline Phosphatase 40 U/L (39-117); Anion Gap 15 (12-20); Aspartate Amino Transferase 23 U/L (5-37); Blood Urea Nitrogen 56 mg/dL (9-16); Calcium 9.0 mg/dL (8.4-10.2); Carbon Dioxide 19 mmol/L (22-29); Chloride 115 mmol/L (96-108); Creatinine Clr Calc Pharmacy 17.0; Estimated Glomerular Filt Rate 16; Potassium 4.9 mmol/L (3.3-5.1); Sodium 144 mmol/L (135-145); Total Protein 7.1 g/dL (6.5-8.0)
[2024-12-29 07:38] LABS: Glucose, Whole Blood 108 mg/dL (60-115)
[2024-12-29] MEDS: 0.9 % Sodium Chloride Flush 3 ML SYRINGE IVFLUSH ×3 (08:18→19:54)
--- NOTE | 2024-12-29 08:50 | P.PNNP_ITS ---
Subjective Subjective Date of Service: 12/29/24 Interval history: following for LUDIN secondary to urinary obstruction. patient denies new complaints/concerns today. vazquez in place, 3L of urine drained in last 24 hours. Physical Exam 2 Vital Signs: Vital Signs: Last Vital Signs Temp 100.1 F 12/29/24 07:47 Pulse 96 12/29/24 07:47 Resp 16 12/29/24 07:47 BP 145/79 H 12/29/24 07:47 Pulse Ox 97 12/29/24 07:47 O2 Del Method Room Air 12/29/24 07:47 BMI result Body Mass Index 22.8 Const: General: no acute distress, alert and awake Resp: Effort & Inspection: normal respiratory effort and able to speak in complete sentences Auscultation: clear to auscultation bilaterally Cardio: Rate: regular rate Rhythm: regular rhythm Heart sounds: S1 normal heart sound present and S2 normal heart sound present GI: Palpation (GI): Soft to palpation and nontender : General: Yes no CVA tenderness Back/Spine/Pelvis: Back: no CVA tenderness Skin: Rashes: no rashes Extrem: General: No edema Objective Data Labs 12/29/24 09:17 12/29/24 05:37 Labs: Laboratory Results - last 24 hr 12/28/24 12/28/24 12/28/24 11:36 16:14 20:24 Sodium Potassium Chloride Carbon Dioxide Anion Gap BUN Creatinine Estim Creat Clear Calc Estimated GFR POC Glucose 141 H 129 H 137 H Random Glucose Calcium Total Bilirubin AST ALT Alkaline Phosphatase Total Protein Albumin 12/29/24 12/29/24 05:37 07:28 Sodium 144 Potassium 4.9 Chloride 115 H Carbon Dioxide 19 L Anion Gap 15 BUN 56 H Creatinine 3.66 H Estim Creat Clear Calc 17.0 Estimated GFR 16 POC Glucose 108 Random Glucose 110 Calcium 9.0 Total Bilirubin 0.4 AST 23 ALT 9 Alkaline Phosphatase 40 Total Protein 7.1 Albumin 3.9 Microbiology Microbiology Results: Microbiology 12/27/24 22:42 Blood - Venous Blood Culture - Preliminary No growth after 24 hours. 12/27/24 22:42 Blood - Venous Blood Culture - Preliminary No growth after 24 hours. Procedures Date of Service Date of Service: 12/29/24 Assessment & Plan Assessment and plan (1) LUDIN (acute kidney injury): Status: Acute (2) Acute urinary retention: Status: Acute Plan LUDIN from obstruction urinary retention; may have component of ATN from prolonged urinary retention (3 days of obstruction before he came to the hospital) improving, though creatinine still high at 3.66, renal function not recovering as expected. BP low, net fluid negative, appears clinically dry- may be hypovolemic due to post obstructive diuresis recommend give IVF today unknown baseline renal function, though patient reports no known kidney disease, sees PCP regularly. recommend repeat renal function and electrolyte studies tomorrow morning avoid nephrotoxins continue supportive care Discussed with Dr Mejía. Time Spent With Patient Time: Total time managing care of this patient today ____ minutes. Progress Note: Quality Stroke Does the patient have a stroke diagnosis?: No
[2024-12-29 09:10] LABS: Glucose, Whole Blood 166 mg/dL (60-115)
--- NOTE | 2024-12-29 09:16 | HO.PM.IMPN ---
Subjective Subjective Date of Service: 12/29/24 Review of Systems f/u on LUDIN, obstructive uropathy, hematuria, pt had periods of agitation last night and got zyprexa he was doing fine this morning, but had rapid response when he becaome briefly unreponsive/confused/diaphoretic BS was normal, initially BP was difficult to detect but improve and gradually almost back to baseline ECG is normal. No chest pain or Shortnes of bre Hematuria has improved and renal function, Cr remains high but has good urine output Physical Exam Vital Signs: Vital Signs: Last Vital Signs Temp 100.1 F 12/29/24 07:47 Pulse 96 12/29/24 07:47 Resp 16 12/29/24 07:47 BP 145/79 H 12/29/24 07:47 Pulse Ox 97 12/29/24 07:47 O2 Del Method Room Air 12/29/24 07:47 BMI result Body Mass Index 22.8 General: seems dazed after the episode of unrepsonsiveness Resp: CTA bilateral CVS: S1,S2,RRR GI: +BS, NT, no distention Skin: No rash Neuro: motor grossly intact, movning all extremities Psych: appropriate affect Objective Data Active Medications Acetaminophen (Acetaminophen 325 Mg Tablet) 650 mg PO Q6H PRN PRN Reason: Pain, Mild 1-3,fever,headache Last Admin: 12/29/24 08:16 Dose: 650 mg Documented By: SARAH BETH Atorvastatin Calcium (Atorvastatin Calcium 80 Mg Tablet) 80 mg PO BEDTIME [facility] Last Admin: 12/28/24 20:26 Dose: 80 mg Documented By: JIMBO Calcium Carbonate (Calcium Carbonate 750 Mg Tab.Chew) 750 mg PO Q4H PRN PRN Reason: Heartburn Carvedilol (Carvedilol 12.5 Mg Tablet) 12.5 mg PO DAILY [facility]; Protocol Last Admin: 12/29/24 08:15 Dose: 12.5 mg Documented By: SARAH BETH Ceftriaxone Sodium (Ceftriaxone Sodium 1 Gm Vial) 1 gm IVPUSH Q24H [facility] Last Admin: 12/28/24 20:25 Dose: 1 gm Documented By: JIMBO Dextrose (Dextrose 50 % 25 Gm/50 Ml Syringe) 25 gm IVPUSH Q15M PRN; Protocol PRN Reason: per Hypoglycemia Standing Ord. Doxazosin Mesylate (Doxazosin Mesylate 2 Mg Tablet) 4 mg PO BEDTIME [facility]; Protocol Last Admin: 12/28/24 20:26 Dose: 4 mg Documented By: JIMBO Finasteride (Finasteride 5 Mg Tablet) 5 mg PO DAILY [facility] Last Admin: 12/29/24 08:15 Dose: 5 mg Documented By: SARAH BETH Glucose (Glucose Gel 15 Gm Gel..Gram.) 15 gm PO Q15M PRN; Protocol PRN Reason: per Hypoglycemia Standing Ord. Heparin Sodium (Porcine) (Heparin Sodium,Porcine 5,000 Unit/Ml Vial) 5,000 unit SUBCUT Q12H [facility] Last Admin: 12/28/24 20:25 Dose: 5,000 unit Documented By: JIMBO Insulin Human Lispro (Insulin Lispro 100 Unit/Ml 3 Ml Vial) 0 unit SUBCUT QIDACHS [facility]; Protocol Last Admin: 12/29/24 07:40 Dose: Not Given Documented By: SARAH BETH Non-Admin Reason: No Insulin Coverage Latanoprost (Latanoprost 0.005 % Ophth [place] 2.5 Ml Drops) 1 drop EYE-BOTH DAILY [facility] Magnesium Hydroxide (Milk Of Magnesia 30 Ml Oral.Susp) 30 ml PO DAILY PRN PRN Reason: Constipation Melatonin (Melatonin 3 Mg Tablet) 6 mg PO BEDTIME PRN PRN Reason: Insomnia Ondansetron HCl (Ondansetron Hcl 4 Mg/2 Ml Vial) 4 mg IVPUSH Q8H PRN PRN Reason: Nausea and Vomiting Sodium Chloride (0.9 % Sodium Chloride Flush 3 Ml Syringe) 3 ml IVFLUSH QSHIFT [facility] Last Admin: 12/29/24 08:18 Dose: 3 ml Documented By: SARAH BETH Labs 12/29/24 09:17 12/29/24 05:37 Labs: Laboratory Results - last 24 hr 12/28/24 12/28/24 12/28/24 11:36 16:14 20:24 Anion Gap Estim Creat Clear Calc Estimated GFR POC Glucose 141 H 129 H 137 H Random Glucose Calcium Total Bilirubin AST ALT Alkaline Phosphatase Lactate Dehydrogenase Total Protein Albumin 12/29/24 12/29/24 12/29/24 05:37 07:28 08:26 Anion Gap 15 Estim Creat Clear Calc 17.0 Estimated GFR 16 POC Glucose 108 Random Glucose 110 Calcium 9.0 Total Bilirubin 0.4 AST 23 ALT 9 Alkaline Phosphatase 40 Lactate Dehydrogenase 219 Total Protein 7.1 Albumin 3.9 12/29/24 09:06 Anion Gap Estim Creat Clear Calc Estimated GFR POC Glucose 166 H Random Glucose Calcium Total Bilirubin AST ALT Alkaline Phosphatase Lactate Dehydrogenase Total Protein Albumin Microbiology Microbiology Results: Microbiology 12/27/24 22:42 Blood Culture - Preliminary Blood - Venous No growth after 24 hours. 12/27/24 22:42 Blood Culture - Preliminary Blood - Venous No growth after 24 hours. Assessment and Plan Plan 84-year-old male with pertinent history of hoa-[id number]-[id number] diabetes mellitus, hypertension, mixed hyperlipidemia who presents to the emergency department for evaluation of abdominal pain and difficulty urinating. Near syncope/unresponsiveness normal ECG, returned to baseline rapidly. DDx: seizure, vaso vagal episode, post parandial hypotension, cva less likly, neuro intact get troponin continuous cardiac monitoring EEG and CT of [facility] Severe bilateral hydronephrosis and hydroureter due to bladder outlet obstruction Seen by Uro recommends Alpha-keith and finasteride Vazquez catheter to remain to drainage till normalization of creatinine Outpatient follow-up 4 weeks for voiding trial Continue Proscar and Cardura LUDIN likely d/t obstructive uropathy, hydronephrosis, and possible CKD continue IVF, keep vazquez, nephrology consult Hyperkalemia, resolved Constipation bowel regimen Ylh-bkamzmu-blovxrrji type 2 diabetes mellitus SSI, diabetic diet Mixed hyperlipidemia On statin Hypertension Hold lisinipril continue Coreg DVT prophylaxis: Heparin Full code. Discussed with patient at bedside Quality Stroke Does the patient have a stroke diagnosis?: No VTE Prior VTE?: No VTE Risk Level:: Medical - moderate - high VTE Device Contraindication: Treatment Not Indicated VTE Drug Contraindication: N/A - Med Ordered
[2024-12-29 09:28] LABS: Hematocrit 30.0 % (42.0-52.0); Hemoglobin 10.3 g/dl (14.0-18.0); Mean Corpuscular HGB Conc 34.3 g/dl (31.0-36.0); Mean Corpuscular Hemoglobin 31.9 pg (27.0-33.0); Mean Corpuscular Volume 92.9 fL (80.0-98.0); NRBC Abs Auto 0.000 X10*3/uL (0.0-0.012); NRBC Pct Auto 0.0 /100WBC (0.0-0.2); Platelet Count 150 X10*3/uL (160-400); Red Blood Count 3.23 X10*6/uL (4.60-5.80); White Blood Count 8.6 X10*3/uL (4.8-10.8)
--- NOTE | 2024-12-29 09:30 | PC.NURSE ---
Pt. 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 This Nurse went back in to give his other med, pt. awake and alert, suddenly became unresponsive, eyes wide open but not responding, diaphoretic. RR was initiated, pt. in and out phasing out. Providers at bedside and orders were put in.
[2024-12-29 09:50] LABS: Troponin-I High Sensitivity 25.4 ng/L (<3.5-35.0)
--- NOTE | 2024-12-29 11:41 | PM.NEUROCN ---
History of Present Illness Data of Consult Service Date: 12/29/24 Primary Care Provider: Won Emerson III, MD [facility] Reason for consult: Episodes of unresponsiveness 84-year-old male with pertinent history of uld-uzociza-aewakleio diabetes mellitus, hypertension, mixed hyperlipidemia who presents to the emergency department for evaluation of abdominal pain and difficulty urinating. Apparently he was noted to be unresponsive on more than 1 occasion and this consultation was requested for possibility of seizure disorder. He denied that he had any seizures and he said he was doing fine. Review of Systems Review of Systems: No recent cold or flu-like illness headache or head injury PMFSH Past Medical History Medical History Hyperlipidemia Hypertension Diabetes Social History Social History Household Members: Spouse Housing: Apartment Do you presently have visiting nurse or other home services: No Patient Tobacco Use Status: Never used Tobacco Second Hand Smoke Exposure: No service: No Meds Allergies Allergy/AdvReac Type Severity Reaction Status Date / Time No Known Allergies Allergy Verified 12/27/24 18:03 Active Medications: Current Medications Acetaminophen (Acetaminophen 325 Mg Tablet) 650 mg PO Q6H PRN PRN Reason: Pain, Mild 1-3,fever,headache Last Admin: 12/29/24 08:16 Dose: 650 mg Atorvastatin Calcium (Atorvastatin Calcium 80 Mg Tablet) 80 mg PO BEDTIME GIOVANNA Last Admin: 12/28/24 20:26 Dose: 80 mg Calcium Carbonate (Calcium Carbonate 750 Mg Tab.Chew) 750 mg PO Q4H PRN PRN Reason: Heartburn Carvedilol (Carvedilol 12.5 Mg Tablet) 12.5 mg PO DAILY GIOVANNA; Protocol Last Admin: 12/29/24 08:15 Dose: 12.5 mg Ceftriaxone Sodium (Ceftriaxone Sodium 1 Gm Vial) 1 gm IVPUSH Q24H GIOVANNA Last Admin: 12/28/24 20:25 Dose: 1 gm Dextrose (Dextrose 50 % 25 Gm/50 Ml Syringe) 25 gm IVPUSH Q15M PRN; Protocol PRN Reason: per Hypoglycemia Standing Ord. Doxazosin Mesylate (Doxazosin Mesylate 2 Mg Tablet) 4 mg PO BEDTIME GIOVANNA; Protocol Last Admin: 12/28/24 20:26 Dose: 4 mg Finasteride (Finasteride 5 Mg Tablet) 5 mg PO DAILY [facility] Last Admin: 12/29/24 08:15 Dose: 5 mg Glucose (Glucose Gel 15 Gm Gel..Gram.) 15 gm PO Q15M PRN; Protocol PRN Reason: per Hypoglycemia Standing Ord. Heparin Sodium (Porcine) (Heparin Sodium,Porcine 5,000 Unit/Ml Vial) 5,000 unit SUBCUT Q12H [facility] Last Admin: 12/29/24 09:19 Dose: 5,000 unit Lactated Ringer's (Lr) 1,000 mls @ 80 mls/hr IVCONT .[id number] [facility] Insulin Human Lispro (Insulin Lispro 100 Unit/Ml 3 Ml Vial) 0 unit SUBCUT QIDACHS [facility]; Protocol Last Admin: 12/29/24 07:40 Dose: Not Given Latanoprost (Latanoprost 0.005 % Ophth [place] 2.5 Ml Drops) 1 drop EYE-BOTH DAILY [facility] Magnesium Hydroxide (Milk Of Magnesia 30 Ml Oral.Susp) 30 ml PO DAILY PRN PRN Reason: Constipation Melatonin (Melatonin 3 Mg Tablet) 6 mg PO BEDTIME PRN PRN Reason: Insomnia Ondansetron HCl (Ondansetron Hcl 4 Mg/2 Ml Vial) 4 mg IVPUSH Q8H PRN PRN Reason: Nausea and Vomiting Sodium Chloride (0.9 % Sodium Chloride Flush 3 Ml Syringe) 3 ml IVFLUSH QSHIFT [facility] Last Admin: 12/29/24 08:18 Dose: 3 ml Home Medications ?Medication ?Instructions ?Recorded ?Confirmed ?Last Taken ?Type aspirin 81 mg tablet,delayed 81 mg PO DAILY 12/28/24 12/28/24 12/27/24 History release carvedilol 12.5 mg tablet 12.5 mg PO DAILY 12/28/24 12/28/24 12/27/24 History latanoprost 0.005 % eye drops 1 drp ophthalmic (eye) DAILY 12/28/24 12/28/24 12/27/24 History lisinopril 40 mg tablet 40 mg PO DAILY 12/28/24 12/28/24 12/27/24 History metformin 1,000 mg tablet 1,000 mg PO BIDWM 12/28/24 12/28/24 12/27/24 History rosuvastatin 20 mg tablet 20 mg PO BEDTIME 12/28/24 12/28/24 12/27/24 History Physical Exam Vital Signs: Vital Signs: Last Vital Signs Temp 97.0 F 12/29/24 10:10 Pulse 83 12/29/24 10:10 Resp 18 12/29/24 10:10 BP 110/59 L 12/29/24 10:10 Pulse Ox 98 12/29/24 10:10 O2 Del Method Room Air 12/29/24 10:10 BMI result Body Mass Index 22.8 Neuro: Other: He is alert and awake with normal spontaneity of speech fluency comprehension and affect. Face is symmetrical. Visual flanagan are full. There was no focal arm or leg weakness. Plantars are flexor. Speech is normal. Results Labs 12/29/24 09:17 12/29/24 05:37 Labs: Short CBC 12/29/24 Range/Units 09:17 WBC 8.6 (4.8-10.8) X10*3/uL Hgb 10.3 L (14.0-18.0) g/dl Hct 30.0 L (42.0-52.0) % Plt Count 150 L (160-400) X10*3/uL BMP 12/29/24 05:37 Sodium 144 Potassium 4.9 Chloride 115 H Carbon Dioxide 19 L BUN 56 H Creatinine 3.66 H Calcium 9.0 Liver Function 12/29/24 Range/Units 05:37 Total Bilirubin 0.4 (0.0-1.0) mg/dL AST 23 (5-37) U/L ALT 9 (0-40) U/L Alkaline Phosphatase 40 (39-117) U/L Albumin 3.9 (3.5-5.0) g/dL Head CT revealed [id number] cerebral atrophy and mild chronic microvascular ischemic changes. Atherosclerotic calcification was noted basilar artery. Microbiology Microbiology Results: Microbiology 12/27/24 22:42 Blood - Venous Blood Culture - Preliminary No growth after 24 hours. 12/27/24 22:42 Blood - Venous Blood Culture - Preliminary No growth after 24 hours. Assessment and Plan (1) Unresponsiveness: Status: Acute 83 years old man who apparently was noted to be unresponsive couple of times in the hospital. There was no previous history of seizure disorder or any obvious explanation for his unresponsiveness. Examination did not reveal any focal abnormality. Seizure disorder was a possibility. My recommendation is to obtain a screening EEG. Procedures Date of Service Date of Service: 12/29/24
[2024-12-29] MEDS: Lactated Ringers 1,000 ML 80 ML IVCONT ×2 (12:33→23:55)
[2024-12-29 12:40] LABS: Glucose, Whole Blood 196 mg/dL (60-115)
[2024-12-29 12:51] LABS: Venous Blood Gas Refer to POC result
[2024-12-29 12:52] LABS: VBG HCO3 18 mmol/L (22-26); VBG O2 % Saturation 99.0 %
[2024-12-29 12:56] LABS: Ammonia 17 umol/L (13-55)
--- NOTE | 2024-12-29 14:28 | PC.NURSE ---
patient transferred from [facility] surge room 361 to [facility] tele room 457 at 9:30 am after [employer] . Drowsy at first , responding to voice . VSS , clear speech, no arm drift . CT scan of the head done , EEG done . Pt tolerated po intake , swallowing intact
[2024-12-29 16:00] LABS: Glucose, Whole Blood 129 mg/dL (60-115)
[2024-12-29 20:07] LABS: Protein/Creatinine Ratio, Ur 6.26 (<0.2); Total Protein Urine Random 412 mg/dL (<12)
[2024-12-29 21:11] LABS: Glucose, Whole Blood 100 mg/dL (60-115)
--- NOTE | 2024-12-29 22:56 | PC.NURSE ---
Patient with hematuria. MD notified and picture sent via secure chat. Per MD, hold subq Heparin injection.
[2024-12-30 03:37] VITALS: BP 116/59; PULSE 105; RESP 18; TEMP 37.6; O2SAT 99
[2024-12-30 07:29] VITALS: BP 105/58; PULSE 80; RESP 18; TEMP 36.8; O2SAT 98
[2024-12-30 07:41] LABS: Alanine Aminotransferase 7 U/L (0-40); Albumin Level 3.3 g/dL (3.5-5.0); Alkaline Phosphatase 35 U/L (39-117); Anion Gap 14 (12-20); Aspartate Amino Transferase 23 U/L (5-37); Blood Urea Nitrogen 59 mg/dL (9-16); Calcium 8.4 mg/dL (8.4-10.2); Carbon Dioxide 19 mmol/L (22-29); Chloride 112 mmol/L (96-108); Creatinine Clr Calc Pharmacy 17.0; Estimated Glomerular Filt Rate 16; Potassium 4.6 mmol/L (3.3-5.1); Sodium 140 mmol/L (135-145); Total Protein 5.8 g/dL (6.5-8.0)
[2024-12-30 07:46] LABS: Glucose, Whole Blood 124 mg/dL (60-115)
[2024-12-30] MEDS: Latanoprost 0.005 % Ophth Sol 2.5 ML DROPS 1 DROP EYE-BOTH (09:03)
--- NOTE | 2024-12-30 09:11 | P.PNIM_ITS ---
Subjective Subjective Date of Service: 12/30/24 Interval History: feels well, mental status back to normal Physical Exam 2 Vital Signs: Vital Signs: Last Vital Signs Temp 98.3 F 12/30/24 07:29 Pulse 80 12/30/24 07:29 Resp 18 12/30/24 07:29 BP 105/58 L 12/30/24 07:29 Pulse Ox 98 12/30/24 07:29 O2 Del Method Room Air 12/30/24 07:29 BMI result Body Mass Index 22.8 Neuro: Other: He is alert and awake with normal spontaneity of speech fluency comprehension and affect. Face is symmetrical. Visual flanagan are full. There was no focal arm or leg weakness. Plantars are flexor. Speech is normal. Objective Data Active Medications Acetaminophen (Acetaminophen 325 Mg Tablet) 650 mg PO Q6H PRN PRN Reason: Pain, Mild 1-3,fever,headache Last Admin: 12/29/24 08:16 Dose: 650 mg Documented By: SARAH BETH Atorvastatin Calcium (Atorvastatin Calcium 80 Mg Tablet) 80 mg PO BEDTIME [facility] Last Admin: 12/29/24 19:53 Dose: 80 mg Documented By: SURI Calcium Carbonate (Calcium Carbonate 750 Mg Tab.Chew) 750 mg PO Q4H PRN PRN Reason: Heartburn Carvedilol (Carvedilol 12.5 Mg Tablet) 12.5 mg PO DAILY [facility]; Protocol Last Admin: 12/30/24 08:26 Dose: Not Given Documented By: ADA Non-Admin Reason: Physician Held Med Ceftriaxone Sodium (Ceftriaxone Sodium 1 Gm Vial) 1 gm IVPUSH Q24H [facility] Last Admin: 12/29/24 19:53 Dose: 1 gm Documented By: SURI Dextrose (Dextrose 50 % 25 Gm/50 Ml Syringe) 25 gm IVPUSH Q15M PRN; Protocol PRN Reason: per Hypoglycemia Standing Ord. Doxazosin Mesylate (Doxazosin Mesylate 2 Mg Tablet) 4 mg PO BEDTIME [facility]; Protocol Last Admin: 12/29/24 19:53 Dose: 4 mg Documented By: SURI Finasteride (Finasteride 5 Mg Tablet) 5 mg PO DAILY [facility] Last Admin: 12/30/24 09:02 Dose: 5 mg Documented By: ADA Glucose (Glucose Gel 15 Gm Gel..Gram.) 15 gm PO Q15M PRN; Protocol PRN Reason: per Hypoglycemia Standing Ord. Heparin Sodium (Porcine) (Heparin Sodium,Porcine 5,000 Unit/Ml Vial) 5,000 unit SUBCUT Q12H [facility] Last Admin: 12/30/24 09:02 Dose: 5,000 unit Documented By: ADA Lactated Ringer's (Lr) 1,000 mls @ 80 mls/hr IVCONT .[id number] [facility] Last Admin: 12/29/24 23:55 Dose: 80 mls/hr Documented By: AICHA Insulin Human Lispro (Insulin Lispro 100 Unit/Ml 3 Ml Vial) 0 unit SUBCUT QIDACHS [facility]; Protocol Last Admin: 12/30/24 08:06 Dose: Not Given Documented By: ADA Non-Admin Reason: No Insulin Coverage Latanoprost (Latanoprost 0.005 % Ophth [place] 2.5 Ml Drops) 1 drop EYE-BOTH DAILY [facility] Last Admin: 12/30/24 09:03 Dose: 1 drop Documented By: ADA Magnesium Hydroxide (Milk Of Magnesia 30 Ml Oral.Susp) 30 ml PO DAILY PRN PRN Reason: Constipation Melatonin (Melatonin 3 Mg Tablet) 6 mg PO BEDTIME PRN PRN Reason: Insomnia Last Admin: 12/29/24 19:53 Dose: 6 mg Documented By: SURI Ondansetron HCl (Ondansetron Hcl 4 Mg/2 Ml Vial) 4 mg IVPUSH Q8H PRN PRN Reason: Nausea and Vomiting Sodium Chloride (0.9 % Sodium Chloride Flush 3 Ml Syringe) 3 ml IVFLUSH QSHIFT [facility] Last Admin: 12/30/24 09:03 Dose: Not Given Documented By: ADA Non-Admin Reason: IV Running Labs 12/29/24 09:17 12/30/24 07:16 Labs: Laboratory Results - last 24 hr 12/29/24 12/29/24 12/29/24 09:17 12:32 12:40 MCV 92.9 MCH 31.9 MCHC 34.3 RDW 12.9 Plt Count 150 L MPV 11.2 Absolute Nucleated RBC 0.000 Nucleated RBC % (auto) 0.0 VBG pH VBG pCO2 VBG pO2 VBG HCO3 VBG O2 Saturation VBG Base Excess Anion Gap Estim Creat Clear Calc Estimated GFR POC Glucose 196 H Random Glucose Calcium Total Bilirubin AST ALT Alkaline Phosphatase Ammonia 17 Total Protein Albumin U Random Total Protein Urine Creatinine Protein/Creatinin Ratio 12/29/24 12/29/24 12/29/24 12:48 15:41 18:45 MCV MCH MCHC RDW Plt Count MPV Absolute Nucleated RBC Nucleated RBC % (auto) VBG pH 7.40 VBG pCO2 28 VBG pO2 249 VBG HCO3 18 L VBG O2 Saturation 99.0 VBG Base Excess -5.5 Anion Gap Estim Creat Clear Calc Estimated GFR POC Glucose 129 H Random Glucose Calcium Total Bilirubin AST ALT Alkaline Phosphatase Ammonia Total Protein Albumin U Random Total Protein 412 H Urine Creatinine 65.82 Protein/Creatinin Ratio 6.26 H 12/29/24 12/30/24 12/30/24 21:09 07:16 07:24 MCV MCH MCHC RDW Plt Count MPV Absolute Nucleated RBC Nucleated RBC % (auto) VBG pH VBG pCO2 VBG pO2 VBG HCO3 VBG O2 Saturation VBG Base Excess Anion Gap 14 Estim Creat Clear Calc 17.0 Estimated GFR 16 POC Glucose 100 124 H Random Glucose 139 H Calcium 8.4 D Total Bilirubin 0.3 AST 23 ALT 7 Alkaline Phosphatase 35 L Ammonia Total Protein 5.8 L Albumin 3.3 L U Random Total Protein Urine Creatinine Protein/Creatinin Ratio Microbiology Microbiology Results: Microbiology 12/27/24 22:42 Blood Culture - Preliminary Blood - Venous No growth after 48 hours. 12/27/24 22:42 Blood Culture - Preliminary Blood - Venous No growth after 48 hours. Assessment and Plan (1) LUDIN (acute kidney injury): Status: Acute Plan 84M PMH diabetes mellitus, hypertension, mixed hyperlipidemia who presented to the emergency department for evaluation of abdominal pain and difficulty urinating. found to have urinary retention and LUDIN. course complicated by episode of near syncope/unresponsiveness Near syncope/unresponsiveness normal ECG, returned to baseline rapidly. DDx: seizure, vaso vagal episode, post parandial hypotension, neuro intact continuous cardiac monitoring EEG appears resolved fever on presentation not sepsis urine negative, but suspect urinary source, continue empiric ceftriaxone Severe bilateral hydronephrosis and hydroureter due to bladder outlet obstruction Seen by Uro recommends Alpha-keith and finasteride Vazquze catheter to remain to drainage till normalization of creatinine Outpatient follow-up 4 weeks for voiding trial Continue Proscar and Cardura LUDIN likely d/t obstructive uropathy, hydronephrosis, and possible CKD continue IVF, keep vazquez, nephrology following Hyperkalemia, resolved Constipation bowel regimen Eoi-oozvput-inkpufhin type 2 diabetes mellitus SSI, diabetic diet Mixed hyperlipidemia On statin Hypertension Hold lisinipril continue Coreg DVT prophylaxis: Heparin Full code. Discussed with patient at bedside Quality Stroke Does the patient have a stroke diagnosis?: No VTE Prior VTE?: No VTE Risk Level:: Medical - moderate - high VTE Device Contraindication: Treatment Not Indicated VTE Drug Contraindication: N/A - Med Ordered
[2024-12-30 11:19] VITALS: BP 102/53; PULSE 62; RESP 16; TEMP 37.2; O2SAT 100
--- NOTE | 2024-12-30 11:22 | P.DS_ITS ---
DS: Providers Provider Date of Service: 12/30/24 Date of admission: 12/28/24 00:41 Date of discharge: 12/30/24 Primary care physician: Won Emerson III, MD Consults: 12/28/24 00:41 Consult to Urology Routine Consulting Provider: [facility] Reason for consultation: bladder outlet obstruction 12/28/24 13:58 Consult to Nephrology Routine Consulting Provider: [facility] Reason for consultation: LUDIN, obstructive uropathy 12/29/24 11:22 Consult to Neurology Routine Consulting Provider: [facility] Reason for consultation: Unresponsiveness DS: Diagnosis Discharge Diagnosis (1) LUDIN (acute kidney injury): Status: Acute DS: Summary Hospital Course Hospital Course: from initial hpi: 84-year-old male with pertinent history of wnk-cachzmy-lqphkwkbr diabetes mellitus, hypertension, mixed hyperlipidemia who presents to the emergency department for evaluation of abdominal pain and difficulty urinating. Patient is a poor historian. History obtained with the help of ER provider and chart review. Patient states he has been having abdominal pain and difficulty with urination. Also has been having difficulty with bowel movements. States he is able to pee only a little bit at a time. Denies nausea or vomiting. Unable to obtain complete review of systems. In the emergency department, serum creatinine found to be 4.2 and potassium 5.8. Imaging with bilateral severe hydronephrosis and hydroureter. hospital course: Patient was admitted for acute kidney injury and hyperkalemia due to severe bilateral hydronephrosis and hydroureter due to bladder outlet obstruction. Was seen by Urology who recommended starting on alpha keith and finasteride, keeping Vazquez catheter for 4 weeks and then attempt voiding trial. We will follow up with Urology as outpatient. Creatinine only improved minimally, still 3.6 at time of discharge. Hyperkalemia resolved. Patient did have fever on presentation, urine was negative but suspect urinary source and treated empirically with ceftriaxone on discharge we will continue 3 more days of Ceftin, fever has not recurred. Patient did have a rapid response during admission for episode of unresponsiveness. This was likely postprandial hypotension and quickly resolved. Afterwards patient was noted to be sleepy though easily arousable and following directions, CT head was negative, we will be referred for EEG as outpatient. For diabetes was treated with insulin sliding scale. For hyperlipidemia continue statin. For hypertension lisinopril has been discontinued due to low normal blood pressures. Time Attestation Discharge Coordination Time (in mins): 35 Quality: Safe Use of Opioids Does Pt have an Active Cancer Diagnosis on the Problem List?: No Quality: Stroke Does the patient have a stroke diagnosis?: No Physical Exam Exam: Exam: General: AO X 3, no acute distress Resp: CTA bilateral, no accessory muscles used CVS: S1,S2,RRR GI: soft, non tender, non distended Neuro: motor grossly intact, alert Psych: appropriate affect, appropriate insight Vital Signs: Vital Signs: Last Vital Signs Temp 98.3 F 12/30/24 07:29 Pulse 80 12/30/24 07:29 Resp 18 12/30/24 07:29 BP 105/58 L 12/30/24 07:29 Pulse Ox 98 12/30/24 07:29 O2 Del Method Room Air 12/30/24 07:29 BMI result Body Mass Index 22.8 DS: Data Data Completed and Pending Labs on day of discharge: Laboratory Results - last 24 hr 12/29/24 12/29/24 12/29/24 12:32 12:40 12:48 VBG pH 7.40 VBG pCO2 28 VBG pO2 249 VBG HCO3 18 L VBG O2 Saturation 99.0 VBG Base Excess -5.5 Sodium Potassium Chloride Carbon Dioxide Anion Gap BUN Creatinine Estim Creat Clear Calc Estimated GFR POC Glucose 196 H Random Glucose Calcium Total Bilirubin AST ALT Alkaline Phosphatase Ammonia 17 Total Protein Albumin U Random Total Protein Urine Creatinine Protein/Creatinin Ratio 12/29/24 12/29/24 12/29/24 15:41 18:45 21:09 VBG pH VBG pCO2 VBG pO2 VBG HCO3 VBG O2 Saturation VBG Base Excess Sodium Potassium Chloride Carbon Dioxide Anion Gap BUN Creatinine Estim Creat Clear Calc Estimated GFR POC Glucose 129 H 100 Random Glucose Calcium Total Bilirubin AST ALT Alkaline Phosphatase Ammonia Total Protein Albumin U Random Total Protein 412 H Urine Creatinine 65.82 Protein/Creatinin Ratio 6.26 H 12/30/24 12/30/24 07:16 07:24 VBG pH VBG pCO2 VBG pO2 VBG HCO3 VBG O2 Saturation VBG Base Excess Sodium 140 Potassium 4.6 Chloride 112 H Carbon Dioxide 19 L Anion Gap 14 BUN 59 H Creatinine 3.60 H Estim Creat Clear Calc 17.0 Estimated GFR 16 POC Glucose 124 H Random Glucose 139 H Calcium 8.4 D Total Bilirubin 0.3 AST 23 ALT 7 Alkaline Phosphatase 35 L Ammonia Total Protein 5.8 L Albumin 3.3 L U Random Total Protein Urine Creatinine Protein/Creatinin Ratio Preliminary micro results at discharge 12/27/24 22:42 Blood Culture - Preliminary Blood - Venous No growth after 48 hours. 12/27/24 22:42 Blood Culture - Preliminary Blood - Venous No growth after 48 hours. Discharge Plan Discharge Anticipated Discharge Date/Time: 12/30/24 11:17 Patient Disposition: Home, Self-Care Discharge Diagnosis: ludin, urinary retention Referrals: Jacob Main MD [Physician, Urology] - 1 Week Won Emerson III, MD [Primary Care Provider, Medical] - 1 Week Mendoza Deleon MD [Physician, Nephrology] - 1 Week Discharge Medications: New finasteride 5 mg Tablet 5 mg PO DAILY Qty: 90 0RF doxazosin 2 mg Tablet 4 mg PO BEDTIME Qty: 90 0RF Protocol: Hold for SBP< HOLD for SBP < : 90 cefuroxime axetil 250 mg tablet 250 mg PO BID Qty: 6 0RF Continued carvedilol 12.5 mg tablet 12.5 mg PO DAILY metformin 1,000 mg tablet 1,000 mg PO BIDWM rosuvastatin 20 mg tablet 20 mg PO BEDTIME latanoprost 0.005 % Drops 1 drp OPHTHALMIC (EYE) DAILY aspirin 81 mg Tablet,Delayed Release (Dr/Ec) 81 mg PO DAILY Discontinued lisinopril 40 mg tablet 40 mg PO DAILY Discharge Orders: Discharge Order (Routine); Ordered 12/30/24 Ordered By: Montana Weiss Diet: Advance to usual diet Activity on Discharge: As tolerated Stand Alone Forms: Patient Portal Discharge page Print Language: Urdu Other Ambulatory Orders: Basic Metabolic Panel (Routine) Timeframe: [id number] Facility: [facility] - Location: Laboratory Ordered By: Montana Weiss EEG electroencephalogram (Routine) Timeframe: 20250101 Facility: [facility] - Location: Radiology Ordered By: Montana Weiss Care Plan Goals: recovery Health Concerns: ludin Plan of Treatment: keep vazquez, start meds as prescibed, stop lisinopril follow up EEG, bmp follow up nephro and urology Assessment: see above
--- NOTE | 2024-12-30 11:28 | MHC.CM.PN ---
Pt is medically cleared for discharge home self-care, pts family will transport him home today.
[2024-12-30 11:30] LABS: Glucose, Whole Blood 242 mg/dL (60-115)
[2025-01-05 18:33] LABS: Kappa, Serum 366 mg/dL (176-443); Kappa/Lambda Ratio, Serum 2.42 (1.29-2.55); Lambda, Serum 151 mg/dL (91-240)
== END 2024-12-30 12:41 | disposition home or self-care (01) | DRG 684 ==
LOC: HO.ED 22:40 → HO.EDOVER 12-28 01:24 → HO.S3 12-28 13:48 → HO.IMC 12-29 09:27
PROVIDERS: Internal Medicine; Nurse Practitioner Family; Physician Assistant Medical; Admitting Provider Student in an Organized Health Care Education/Training Program; Emergency Provider Emergency Medicine; PCP Internal Medicine; Visit Provider Internal Medicine
DX: N17.0 Acute kidney failure with tubular necrosis (principal); N13.30 Unspecified hydronephrosis; E78.2 Mixed hyperlipidemia; K59.00 Constipation, unspecified; E87.5 Hyperkalemia; I12.9 Hypertensive chronic kidney disease with stage 1 through stage 4 chronic kidney disease, or unspecified chronic kidney disease; N18.9 Chronic kidney disease, unspecified; R55 Syncope and collapse; E11.22 Type 2 diabetes mellitus with diabetic chronic kidney disease; Z20.822 Contact with and (suspected) exposure to COVID-19; Z79.82 Long term (current) use of aspirin; Z79.84 Long term (current) use of oral hypoglycemic drugs; Z79.899 Other long term (current) drug therapy
CPT/HCPCS: 36415; 70450; 71045; 74018; 74176; 80048; 80053; 81001; 82140; 82570; 82784; 82803; 82947; 83605; 83615; 83690; 83735; 83883; 84156; 84484; 85025; 85027; 86334; 86335; 87040; 87637; 93005; 95816; 99285; J0613; J0696; J1644; J2359; J7120

== ENCOUNTER → 2024-12-27 18:13 | Outpatient (BNV) | payer SELFPAY | PROVIDERS: Visit Provider Specialist | DX: N13.30 Unspecified hydronephrosis (principal); N40.0 Benign prostatic hyperplasia without lower urinary tract symptoms; K59.00 Constipation, unspecified; K44.9 Diaphragmatic hernia without obstruction or gangrene; R50.9 Fever, unspecified | CPT/HCPCS: 71045; 74018; 74176 ==

== ENCOUNTER → 2024-12-27 22:33 | Outpatient (BNV) | payer MEDICARE, SELFPAY | PROVIDERS: Admitting Provider Student in an Organized Health Care Education/Training Program; Emergency Provider Emergency Medicine; PCP Internal Medicine; Visit Provider Internal Medicine | DX: E87.5 Hyperkalemia (principal) | CPT/HCPCS: 93010 ==

== ENCOUNTER 2024-12-28 00:41 | Outpatient (BNV) | payer MEDICARE, SELFPAY | END 2024-12-29 11:15 | PROVIDERS: Admitting Provider Student in an Organized Health Care Education/Training Program; Emergency Provider Emergency Medicine; PCP Internal Medicine; Visit Provider Psychiatry & Neurology Neurology | DX: R40.20 Unspecified coma (principal) | CPT/HCPCS: 95816 ==

== ENCOUNTER 2024-12-28 00:41 | Outpatient (BNV) | payer MEDICARE, SELFPAY | END 2024-12-29 08:59 | PROVIDERS: Admitting Provider Student in an Organized Health Care Education/Training Program; Emergency Provider Emergency Medicine; PCP Internal Medicine; Visit Provider Internal Medicine | DX: Z13.6 Encounter for screening for cardiovascular disorders (principal) | CPT/HCPCS: 93010 ==

== ENCOUNTER 2024-12-28 00:41 | Outpatient (BNV) | payer MEDICARE, SELFPAY | END 2024-12-29 10:32 | PROVIDERS: Admitting Provider Student in an Organized Health Care Education/Training Program; Emergency Provider Emergency Medicine; PCP Internal Medicine; Visit Provider Radiology Diagnostic Radiology | DX: R41.82 Altered mental status, unspecified (principal) | CPT/HCPCS: 70450 ==

== ENCOUNTER → 2024-12-28 00:41 | Outpatient (BNV) | payer MEDICARE, SELFPAY | PROVIDERS: Admitting Provider Student in an Organized Health Care Education/Training Program; Emergency Provider Emergency Medicine; PCP Internal Medicine; Visit Provider Urology | DX: R33.8 Other retention of urine (principal); N17.9 Acute kidney failure, unspecified | CPT/HCPCS: 99222 ==

== ENCOUNTER → 2024-12-28 00:41 | Outpatient (BNV) | payer MEDICARE, SELFPAY | PROVIDERS: Admitting Provider Student in an Organized Health Care Education/Training Program; Emergency Provider Emergency Medicine; PCP Internal Medicine; Visit Provider Psychiatry & Neurology Neurology | DX: R41.89 Other symptoms and signs involving cognitive functions and awareness (principal) | CPT/HCPCS: 99222 ==

== ENCOUNTER → 2024-12-28 00:41 | Outpatient (BNV) | payer MEDICARE, SELFPAY | PROVIDERS: Admitting Provider Student in an Organized Health Care Education/Training Program; Emergency Provider Emergency Medicine; PCP Internal Medicine; Visit Provider Student in an Organized Health Care Education/Training Program | DX: N17.9 Acute kidney failure, unspecified (principal) | CPT/HCPCS: 99223; 99239; 99499 ==

== ENCOUNTER → 2024-12-28 00:41 | Outpatient (BNV) | payer MEDICARE, SELFPAY | PROVIDERS: Admitting Provider Student in an Organized Health Care Education/Training Program; Emergency Provider Emergency Medicine; PCP Internal Medicine; Visit Provider Nurse Practitioner Family | DX: N17.9 Acute kidney failure, unspecified (principal); R33.8 Other retention of urine | CPT/HCPCS: 99221; 99231 ==

== ENCOUNTER 2025-01-03 11:05 | Outpatient (AMB) | payer MEDICARE, SELFPAY ==
--- NOTE | 2025-01-03 11:16 | HO.NEPHOV ---
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 He states he is not aware of any medical renal disease. He is here for hospital follow up. He was hospitalized from 12/28-12/30/24. Presented 12/27 with abdominal pain and urinary retention x3 days. Had LUDIN, creatinine on presentation 4.04, baseline unknown. Had severe bilateral hydronephrosis, vazquez catheter placed and drained over 3L of urine. His creatinine improved to 3.6 over two day period after obstruction resolved. Patient was adviesd to STOP home lisinopril given LUDIN. urine studies showed over 6 grams of protein in his urine, no blood or white cells on UA. Patient reports today he still has catheter in place. Reports he is feeling well. Notes he has lost weight this was intentional, he has been trying to eat better and lose weight. Reports he is still taking lisinopril- resumed this when he got home. He reports his sugars have been in the 140s. Reports he does not add salt to his food. Reports he works on staying active and exercising. Won [place], seeing next week. Reports was ok'd to take aspirin by PCP, but not sure why he is on it. He denies chest pain, shortness of breath, abdominal pain, flank/back pain, urinary symptoms (catheter in place- seeing urology mid January), lower extremity swelling. Reports he is feeling well, denies fatigue/malaise. Reports he is feeling well and denies any complaints/concerns. [facility] Medical History Hyperlipidemia Hypertension Diabetes Social History Household Members: Spouse Housing: Apartment Do you presently have visiting nurse or other home services: No Patient Tobacco Use Status: Never used Tobacco Second Hand Smoke Exposure: No service: No Review of Systems Const All systems reviewed & are unremarkable except as noted in HPI and below Physical Exam Vital Signs: Last Vital Signs BP 90/50 L 01/03/25 11:19 BMI result Body Mass Index 22.7 Const General: comfortable, alert and awake Neck Neck: Yes no JVD Resp Effort & Inspection: normal respiratory effort and able to speak in complete sentences Auscultation: clear to auscultation bilaterally Cardio Jugular venous distension: no JVD Rate: regular rate Rhythm: regular rhythm Heart sounds: S1 normal heart sound present and S2 normal heart sound present GI Palpation (GI): Soft to palpation and nontender General: Yes no CVA tenderness Back/Spine/Pelvis Back: no CVA tenderness Skin Rashes: no rashes Extrem General: No edema Results Reviewed Nephrology Results: Hgb, (14.0-18.0) 10.3 g/dl L 12/29/24 WBC, (4.8-10.8) 8.6 X10*3/uL 12/29/24 Plt Count, (160-400) 150 X10*3/uL L 12/29/24 Sodium, (135-145) 140 mmol/L 12/30/24 Potassium, (3.3-5.1) 4.6 mmol/L 12/30/24 Chloride, (96-108) 112 mmol/L H 12/30/24 Carbon Dioxide, (22-29) 19 mmol/L L 12/30/24 BUN, (9-16) 59 mg/dL H 12/30/24 Creatinine, (0.5-1.4) 3.60 mg/dL H 12/30/24 Calcium, (8.4-10.2) 8.4 mg/dL Δ 12/30/24 Urine Protein, (Neg-Trace) 30 (1+) mg/dL H 12/27/24 Urine Creatinine 65.82 mg/dL 12/29/24 Protein/Creatinin Ratio, (<0.2) 6.26 H 12/29/24 Assessment & Plan Assessment & Plan (1) LUDIN (acute kidney injury): Code(s): N17.9 - Acute kidney failure, unspecified Category: Medical (2) Acute urinary retention: Code(s): R33.8 - Other retention of urine Category: Medical (3) Proteinuria: Code(s): R80.9 - Proteinuria, unspecified Category: Medical Qualifiers: Proteinuria type: unspecified Qualified Code(s): R80.9 - Proteinuria, unspecified Plan LUDIN likely secondary to urinary obstruction, though likely also had component of ATN given creatinine did not improve as anticipated. Possible this is near baseline, though given patient is not aware of any underlying renal disease this is less likely. Will re-check his renal function studies in 1-2 weeks to evaluate for continued improvement- if ATN anticipate additional time is needed for LUDIN to resolve. Will also get 24 hour urine creatinine clearance and repeat UA at that time. Has an anemia and mild thrombocytopenia in hospital, unclear if chronic, will check serum/urine immunofixation. Patient should eventually be placed back on an ACEi/ARB once renal function returns to baseline/stabilizes, but will need to hold off until renal functions are stable for some time to avoid further renal injury. Discussed importance of diabetic control, blood pressure control, low salt diet, exercise and maintaining a healthy body weight. Discussed importance of avoiding nsaids. He will return to the office in 2-3 weeks, labs prior. Discussed with Dr Deleon. Orders: Orders Basic Metabolic Panel 2 Weeks N17.9 - Acute kidney failure, unspecified, N18.30 - Chronic kidney disease, stage 3 unspecified, R33.8 - Other retention of urine, R80.9 - Proteinuria, unspecified Protein, 24 Hr Urine Group 2 Weeks N17.9 - Acute kidney failure, unspecified, R33.8 - Other retention of urine, R80.9 - Proteinuria, unspecified Immunofixation Pnl, Serum 2 Weeks N17.9 - Acute kidney failure, unspecified, R80.9 - Proteinuria, unspecified Barron/Lambda Light Chain Serum 2 Weeks N17.9 - Acute kidney failure, unspecified, R80.9 - Proteinuria, unspecified UA CC w/rflx Micro + Cult 2 Weeks N17.9 - Acute kidney failure, unspecified, R33.8 - Other retention of urine, R80.9 - Proteinuria, unspecified Protein Creatinine Ratio, Ur 2 Weeks N17.9 - Acute kidney failure, unspecified, R33.8 - Other retention of urine, R80.9 - Proteinuria, unspecified Immunofixation, Random Urine 2 Weeks N17.9 - Acute kidney failure, unspecified, R80.9 - Proteinuria, unspecified Creatinine Clearance Urine 24U Today N17.9 - Acute kidney failure, unspecified, R80.9 - Proteinuria, unspecified Coding Level of Care Code Est Pt Level 4 (49927) Diagnoses LUDIN (acute kidney injury) N17.9 Acute urinary retention R33.8 Proteinuria, unspecified type R80.9 Proteinuria type: unspecified Time Spent (min) 30
[2025-01-03 11:19] VITALS: BP 90/50; BMI 22.7
--- OUTSIDE RECORDS SUMMARY | 2025-01-03 12:08 | XMS_ITS | Clinical Summary ---
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 Active ammonium lactate (AMLACTIN) 12 % cream Apply to dry skin on both feet daily 9 Active OneTouch Ultra Test test strip Test every day as directed 7 Active ciclopirox (LOPROX) 0.77 % gel Apply to toenails once daily 9 Active latanoprost (XALATAN) 0.005 % ophthalmic solution apply 1 Drop to the eye at bedtime. 9 Active carvediloL (COREG) 12.5 mg tablet TAKE 1 TABLET BY MOUTH EVERY DAY 90 tablet 1 5 Active lisinopril (PRINIVIL,ZEST RIL) 40 mg tablet Take 1 tablet (40 mg total) by mouth 1 (one) time each day. 90 each 1 5 Active rosuvastatin (CRESTOR) 20 mg tablet TAKE 1 TABLET BY MOUTH EVERYDAY AT BEDTIME 90 tablet 1 5 Active metFORMIN (GLUCOPHAGE) 1,000 mg tablet TAKE 1 TABLET BY MOUTH TWICE A DAY WITH FOOD 180 tablet 1 5 Active rosuvastatin (CRESTOR) 20 mg tablet Take 1 Tablet by mouth at bedtime. 4 025 Discontinued metFORMIN (GLUCOPHAGE) 1,000 mg tablet TAKE 1 TABLET BY MOUTH TWICE A DAY WITH MEALS 180 tablet 5 025 Discontinued Active Problems Problem Noted Date Diagnosed Date Glaucoma 05/26/2024 HTN (hypertension) 05/26/2024 Hyperlipidemia 05/26/2024 Type 2 diabetes mellitus wit h neurologic complication, without long-term current use of insulin ([facility] V24, [facility] V28) 05/26/2024 Overweight 09/08/2017 Diabetic peripheral neuropathy ([facility] V24, [facility] V28) 05/26/2016 Bunion of great toe 04/17/2014 Hammer toe 04/17/2014 Encounters Date Type Department Care Team Description 01/01/2025 Telephone Adult Medicine [address] [phone] Won Emerson MD [facility] Follow-up 11/23/2024 3:00 PM EDT Office Visit Adult [address] [phone] Cem Cardoza PA Hypertension, unspecified type (Primary Dx); Hyperlipidemia, unspecified hyperlipidemia type; Type 2 diabetes mellitus with diabetic neuropathy, without long-term current use of insulin ([facility] V24, [facility] V28) from Last 3 Months Immunizations Name Administration Dates Next Due Influenza trivalent, 0.5mL ( Fluad) 65yo and older 03/18/2023,03/16/2022,03/02/2017 Influenza trivalent, with pr eservative (Fluzone; Afluria) 6mo and older 03/27/2020,04/19/2015,04/17/2014 Pneumococcal conjugate 13 va lent (Prevnar 13, PCV13) 2mo and older 05/26/2016 Pneumococcal polysaccharide 23 valent (Pneumovax 23) 2yo and older 09/08/2017 Tdap Tetanus diptheria acell ular pertussis (Boostrix; Adacel) 7yo and older 09/17/2014 Surgical History Surgery Date Site/Laterality Comments OTHER SURGICAL HISTORY PROCEDURE: DENIES PREVIOUS SURGERY Medical History Medical History Date Comments Type 2 diabetes mellitus ([facility] V24, [facility] V28) DX:Type 2 diabetes mellitus (HCC) HTN (hypertension) DX:HTN (hyper tension) Hyperlipidemia DX:Hyperlipidemi a Glaucoma DX:Glaucoma Hammer toe 04/17/2014 DX:Hammer toe Bunion of great toe 04/17/2014 DX:Bunion of great toe History of tobacco abuse DX:Hist ory of tobacco abuse Family History Medical History Relation Name Comments Other: neg family his cancer Other Blindness Neg Hx Cataracts Neg Hx Glaucoma Neg Hx Macular degeneration Neg Hx Strabismus Neg Hx Relation Name Status Comments Other Social History Tobacco Use Types Packs/Day Years Used Date Smoking Tobacco: Former Smokeless Tobacco: Never Tobacco Cessation:Counseling Given: Not Answered Alcohol Use Standard Drinks/Week Comments Yes 0 (1 standard drink = 0.6 oz pur e alcohol) Sex and Gender Information Value Date Recorded Sex Assigned at Not on file Legal Sex Male 12:19 AM EST Gender Identity Not on file Sexual Orientation Not on file Obstetrics History Last Filed Vital Signs Vital Sign Reading Time Taken Comments Blood Pressure 156/74 11/23/2024 3:25 PM EDT Pulse 78 11/23/2024 3:05 PM EDT Temperature 36.4 C (97.6 F) 11/23/2024 3:05 PM EDT Respiratory Rate 16 11/23/2024 3:05 PM EDT Oxygen Saturation 98% 11/23/2024 3:05 PM EDT Inhaled Oxygen Concentration - - Weight 80.7 kg (178 lb) 11/23/2024 3:05 PM EDT Height 182.9 cm (6') 11/23/2024 3:05 PM EDT Body Mass Index 24.14 11/23/2024 3:05 PM EDT Plan of Treatment Upcoming Encounters Date Type Department Care Team (Late st Contact Info) Description 01/23/2025 1:30 PM EDT Office Visit Adult Medicine [address] [phone] Won Emerson MD [address] [place] [address] 05/29/2025 3:00 PM EST Office Visit Adult Medicine [address] [phone] Won Emerson MD [address] [place] [phone] Health Maintenance Due Date Last Done Comments Diabetes: Annual Foot Exam 1950 Diabetes: Annual Retina Eye Exam 1950 Zoster Vaccines (1 of 2) 1992 RSV Immunization Adult Patients (1 - 1-dose 75+ series) 2017 Medicare Annual Wellness Visit 05/23/2022 Social Influencers of Health Screening 05/23/2022 COVID-19 Vaccine ( season) 2024 11/07/2020, 10/10/2020 Depression Screening 06/14/2024 Diabetes: Annual Urine Albumin-Creatinine Ratio (uACR) 09/09/2024 09/10/2023 Diabetes: Blood Sugar Control Test (HGBA1C) 09/15/2024 03/17/2024, 03/17/2024 DTaP,Tdap,and Td Vaccines (2 - Td or Tdap) 09/17/2024 09/17/2014 Influenza Vaccine (#1) 2025 , 03/16/2022, 03/27/2020, Additional history exists Diabetes: Annual GFR (Glomerular Filtration Rate) 03/17/2025 03/17/2024, 03/17/2024 Hypertension/CHF/CAD Annual BMP Blood Test 03/17/2025 03/17/2024, 03/17/2024 Falls Risk Assessment 03/24/2025 03/24/2024 Cholesterol Screening (Lipid Panel) 03/17/2029 03/17/2024, 03/17/2024 Pneumococcal Vaccine: 50+ Years Completed 09/08/2017, 05/26/2016 HIB Vaccines Aged Out No longer eligi ble based on patient's age to complete this topic HPV Vaccines Aged Out No longer eligi ble based on patient's age to complete this topic Hepatitis A Vaccines Aged Out No long er eligible based on patient's age to complete this topic Hepatitis B Vaccines Aged Out No long er eligible based on patient's age to complete this topic IPV Vaccines Aged Out No longer eligi ble based on patient's age to complete this topic MMR Vaccines Aged Out No longer eligi ble based on patient's age to complete this topic Meningococcal ACWY Vaccine Aged Out N o longer eligible based on patient's age to complete this topic Meningococcal B Vaccine Aged Out No l onger eligible based on patient's age to complete this topic RSV Immunization Patients Under 20 months Aged Out No longer eligible based on patient's age to complete this topic Varicella Vaccines Aged Out No longer eligible based on patient's age to complete this topic Procedures Procedure Name Priority Date/Time Associated Diagnosis Comments FALLS RISK ASSESSMENT Routine 03/24/2024 ANNUAL BMP BLOOD TEST Routine 03/17/2024 HEMOGLOBIN A1C Routine 03/17/2024 LIPID PANEL Routine 03/17/2024 URINE ALBUMIN CREATININE RATIO Routine 09/10/2023 from Last 3 Months or Most Recently Relevant to Health Maintenance Results * Falls Risk Assessment (03/24/2024) Pathologist [facility] Falls Risk Assessment Abstracted [facility] Provider HEALTH MAINTENANCE Final Result * Annual BMP Blood Test (03/17/2024) Pathologist [facility] Annual BMP Blood Test Abstracted Result [facility] Provider HEALTH MAINTENANCE Final Result * Hemoglobin A1c (03/17/2024) Pathologist [facility] Hemoglobin A1C 5.9 <=6.5 % Blood Venous blood specimen / Unknown Result [facility] Provider LAB BLOOD ORDERABLES Viridiana l Result * Lipid panel (03/17/2024) Pathologist [facility] LDL/HDL Ratio 2 0 - 4 Triglycerides 89 0 - 150 mg/dL Cholesterol 107 0 - 200 mg/dL HDL 58 >=40 mg/dL LDL Cholesterol 32 0 - 100 mg/dL Blood Venous blood specimen / Unknown Result [facility] Provider LAB BLOOD ORDERABLES Viridiana l Result * Urine Albumin Creatinine Ratio (09/10/2023) Urine Albumin Creatinine Ratio Abstracted Historical Provider HEALTH MAINTENANCE Final Result from Last 3 Months or Most Recently Relevant to Health Maintenance Insurance [facility] MEDICARE Care Teams 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
--- OUTSIDE RECORDS SUMMARY | 2025-01-03 12:08 | XMS_ITS ---
[facility] Name [facility] Organization [facility] Care Team Organization Name Specialty Phone Email Start Date End Da te [facility] Primary Care 04/21/2022 4
== END 2025-01-03 11:43 | disposition home or self-care (01) ==
LOC: HO.HKA 11:06
PROVIDERS: PCP Internal Medicine; Visit Provider Nurse Practitioner Family
DX: N17.9 Acute kidney failure, unspecified (principal); R33.8 Other retention of urine; R80.9 Proteinuria, unspecified
CPT/HCPCS: 99214

== ENCOUNTER → 2025-01-03 11:05 | Outpatient (BNVA) | payer MEDICARE, SELFPAY | PROVIDERS: PCP Internal Medicine; Visit Provider Nurse Practitioner Family | DX: R33.8 Other retention of urine (principal); N17.9 Acute kidney failure, unspecified; R80.9 Proteinuria, unspecified; Z79.82 Long term (current) use of aspirin; Z79.84 Long term (current) use of oral hypoglycemic drugs; Z79.899 Other long term (current) drug therapy | CPT/HCPCS: 99212 ==

== ENCOUNTER 2025-01-23 15:04 | Outpatient (REF) | payer MEDICARE, SELFPAY ==
[2025-01-23 16:56] LABS: Appearance Urine Turbid; Glucose Urine UA Negative (Negative); PH 7.0 (5.0-9.0); Specific Gravity - Urine 1.015 (1.005-1.025); UMIC TRIGGER UACC YES
[2025-01-23 16:58] LABS: UACC Culture Trigger YES
[2025-01-23 17:12] LABS: Anion Gap 15 (12-20); Blood Urea Nitrogen 42 mg/dL (9-16); Calcium 9.0 mg/dL (8.4-10.2); Carbon Dioxide 23 mmol/L (22-29); Chloride 107 mmol/L (96-108); Estimated Glomerular Filt Rate 32; Potassium 5.2 mmol/L (3.3-5.1); Sodium 140 mmol/L (135-145)
[2025-01-23 17:37] LABS: Creatinine, mg/dL 66.71
[2025-01-23 19:36] LABS: Total Volume 24 Hour Urine 1675 mL
[2025-01-23 19:40] LABS: Creatinine (CrCl) 1.99 mg/dL (0.5-1.4)
== END 2025-01-23 15:05 | disposition home or self-care (01) ==
LOC: HO.LAB 15:04
PROVIDERS: PCP Internal Medicine; Visit Provider Nurse Practitioner Family
DX: R33.8 Other retention of urine (principal); R80.9 Proteinuria, unspecified; N17.9 Acute kidney failure, unspecified; N18.30 Chronic kidney disease, stage 3 unspecified
CPT/HCPCS: 36415; 80048; 81001; 82575; 84156; 87086; 87088; 87186

== ENCOUNTER 2025-01-26 11:17 | Outpatient (AMB) | payer MEDICARE, OTHER, SELFPAY ==
--- NOTE | 2025-01-26 11:20 | HO.NEPHOV_ITS ---
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 He states he is not aware of any medical renal disease. He was hospitalized from 12/28-12/30/24 for LUDIN and urinary obstruction. Creatinine on presentation was 4.04, baseline unknown. His creatinine improved to 3.6 over two day period after obstruction resolved. Home lisinopril was discontinued due to LUDIN. urine studies showed over 6 grams of protein in his urine, no blood or white cells on UA. Whyte catheter was placed on 12/27 by urology- pt states plan for removal on Wednesday (three days). He had some bacteruria on recent culture, but is asymptomatic. Pt states he feels well, denies flank pain, pelvic pain, dsyruia, sensation of urgency, fatigue/malaise/brain fog. creatinine has improved to 1.99 on 01/23. Was 3.6 on discharge 12/30. Has over 6 grams of protein in his urine. 24 hour urine creatinine clearance 38.9. No monoclonal proteins detected on serum and urine immunofixation. IgA level is elevated at 509. He denies chest pain, shortness of breath, abdominal pain, flank/back pain, urinary symptoms (catheter in place- seeing urology mid January), lower extremity swelling. Reports he is feeling well, denies fatigue/malaise. Reports he is feeling well and denies any complaints/concerns. [facility] Medical History Hyperlipidemia Hypertension Diabetes Social History Household Members: Spouse Housing: Apartment Do you presently have visiting nurse or other home services: No Patient Tobacco Use Status: Never used Tobacco Second Hand Smoke Exposure: No service: No Review of Systems Const All systems reviewed & are unremarkable except as noted in HPI and below Physical Exam Const General: comfortable, alert and awake Neck Neck: Yes no JVD Resp Effort & Inspection: normal respiratory effort and able to speak in complete sentences Auscultation: clear to auscultation bilaterally Cardio Jugular venous distension: no JVD Rate: regular rate Rhythm: regular rhythm Heart sounds: S1 normal heart sound present and S2 normal heart sound present GI Palpation (GI): Soft to palpation and nontender General: Yes no CVA tenderness Back/Spine/Pelvis Back: no CVA tenderness Skin Rashes: no rashes Extrem General: No edema Results Reviewed Nephrology Results: Hgb, (14.0-18.0) 10.3 g/dl L 12/29/24 WBC, (4.8-10.8) 8.6 X10*3/uL 12/29/24 Plt Count, (160-400) 150 X10*3/uL L 12/29/24 Sodium, (135-145) 140 mmol/L 01/23/25 Potassium, (3.3-5.1) 5.2 mmol/L H 01/23/25 Chloride, (96-108) 107 mmol/L 01/23/25 Carbon Dioxide, (22-29) 23 mmol/L 01/23/25 BUN, (9-16) 42 mg/dL H 01/23/25 Creatinine, (0.5-1.4) 1.99 mg/dL H 01/23/25 Calcium, (8.4-10.2) 9.0 mg/dL Δ 01/23/25 Urine Protein, (Neg-Trace) 300 (3+) mg/dL H 01/23/25 Urine Creatinine 65.82 mg/dL 12/29/24 Protein/Creatinin Ratio, (<0.2) 6.26 H 12/29/24 Assessment & Plan Assessment & Plan (1) LUDIN (acute kidney injury): Code(s): N17.9 - Acute kidney failure, unspecified Category: Medical (2) Acute urinary retention: Code(s): R33.8 - Other retention of urine Category: Medical (3) Proteinuria: Code(s): R80.9 - Proteinuria, unspecified Category: Medical Qualifiers: Proteinuria type: unspecified Qualified Code(s): R80.9 - Proteinuria, unspecified Plan LUDIN likely secondary to urinary obstruction, though likely also had component of ATN given creatinine did not improve as anticipated, creatinine is continuing to improve gradually. Likely has some baseline renal disease given significant proteinuria. Diabetic nephropathy on differential. IgA elevated, cannot rule out IgA nephropathy. Given significant improvement in creatinine will hold off on renal biopsy for now and continue to monitor. Patient should eventually be placed back on an ACEi/ARB once renal function returns to baseline/stabilizes, but will need to hold off until renal functions are stable for some time to avoid further renal injury. potassium is mildly elevated at 5.2- son reports patient eats a big bowl of plantains every evening in addition to a banana every morning. Advised to cut back on plantains which are high in potassium. Discussed importance of diabetic control, blood pressure control, low salt diet, exercise and maintaining a healthy body weight. Discussed importance of avoiding nsaids. He will return to the office in 1 month. Labs prior. Discussed with Dr Jarvis. Orders: Orders Basic Metabolic Panel 1 Month N17.9 - Acute kidney failure, unspecified, N18.30 - Chronic kidney disease, stage 3 unspecified Coding Level of Care Code Est Pt Level 3 (51049) Diagnoses LUDIN (acute kidney injury) N17.9 Acute urinary retention R33.8 Proteinuria, unspecified type R80.9 Proteinuria type: unspecified
[2025-01-26 11:26] VITALS: BP 120/56; PULSE 68; O2SAT 98; BMI 22.9
== END 2025-01-26 11:39 | disposition home or self-care (01) ==
LOC: HO.HKA 11:17
PROVIDERS: PCP Internal Medicine; Visit Provider Nurse Practitioner Family
DX: N17.9 Acute kidney failure, unspecified (principal); R33.8 Other retention of urine; R80.9 Proteinuria, unspecified
CPT/HCPCS: 99213

== ENCOUNTER → 2025-01-26 11:17 | Outpatient (BNVA) | payer MEDICARE, OTHER, SELFPAY | PROVIDERS: PCP Internal Medicine; Visit Provider Nurse Practitioner Family | DX: N17.9 Acute kidney failure, unspecified (principal); R33.8 Other retention of urine; R80.9 Proteinuria, unspecified; Z96.0 Presence of urogenital implants | CPT/HCPCS: 99212 ==

== ENCOUNTER → 2025-01-29 08:58 | Outpatient (BNVA) | payer MEDICARE, OTHER, SELFPAY | PROVIDERS: PCP Internal Medicine; Visit Provider Urology | DX: R33.8 Other retention of urine (principal) | CPT/HCPCS: 51700; 51702 ==

== ENCOUNTER → 2025-02-26 10:55 | Outpatient (BNVA) | payer MEDICARE, OTHER, SELFPAY | PROVIDERS: PCP Internal Medicine; Visit Provider Urology | DX: Z46.6 Encounter for fitting and adjustment of urinary device (principal); R33.8 Other retention of urine | CPT/HCPCS: 51700; 51702; 51798 ==

== ENCOUNTER 2025-03-05 13:06 | Outpatient (REF) | payer MEDICARE, OTHER, SELFPAY ==
[2025-03-05 14:43] LABS: Appearance Urine Turbid; Glucose Urine UA Negative (Negative); PH 5.5 (5.0-9.0); Specific Gravity - Urine 1.015 (1.005-1.025); UMIC TRIGGER UACC YES
[2025-03-05 14:53] LABS: Anion Gap 10 (12-20); Blood Urea Nitrogen 33 mg/dL (9-16); Calcium 9.2 mg/dL (8.4-10.2); Carbon Dioxide 27 mmol/L (22-29); Chloride 108 mmol/L (96-108); Estimated Glomerular Filt Rate 39; Potassium 4.9 mmol/L (3.3-5.1); Sodium 140 mmol/L (135-145)
[2025-03-05 15:10] LABS: UACC Culture Trigger YES
[2025-03-05 15:34] LABS: Protein/Creatinine Ratio, Ur 0.60 (<0.2); Total Protein Urine Random 46 mg/dL (<12)
[2025-03-09 01:18] LABS: Kappa, Serum 382 mg/dL (176-443); Kappa/Lambda Ratio, Serum 2.32 (1.29-2.55); Lambda, Serum 165 mg/dL (91-240)
== END 2025-03-05 13:07 | disposition home or self-care (01) ==
LOC: HO.LAB 13:06
PROVIDERS: Internal Medicine; PCP Internal Medicine; Visit Provider Nurse Practitioner Family
DX: N17.9 Acute kidney failure, unspecified (principal); R80.9 Proteinuria, unspecified
CPT/HCPCS: 36415; 80048; 81001; 82570; 82784; 83883; 84156; 86334; 86335; 87086; 87088; 87186; 99212

== ENCOUNTER 2025-03-05 13:53 | Outpatient (AMB) | payer MEDICARE, OTHER, SELFPAY ==
[2025-03-05 13:59] VITALS: BP 144/66; PULSE 69; O2SAT 99
--- NOTE | 2025-03-05 13:59 | HO.NEPHOV ---
Vital Signs 03/05/25 13:59 Height 6 ft BP 144/66 H Blood Pressure Location Rt brachial Position Sitting Pulse 69 Pulse Source Pulse Oximeter Pulse Oximetry (%) 99 Oxygen Delivery Method Room Air Intake Visit Reasons: 1 MO FU Labs prior Makeup Editor Required: No Accompanied by: Son Allergies No Known Allergies Allergy (Verified 03/05/25 14:01) HPI Comments Details: Sukhjinder is an 84 y/o male with a history of diabetes, HTN, mixed HLD. He states he is not aware of any medical renal disease. He was hospitalized from 12/28-12/30/24 for LUDIN and urinary obstruction. Creatinine on presentation was 4.04, baseline unknown. His creatinine improved to 3.6 over two day period after obstruction resolved. Home lisinopril was discontinued due to LUDIN. urine studies showed over 6 grams of protein in his urine, no blood or white cells on UA. Whyte catheter was placed on 12/27 by urology- pt states plan for removal on Wednesday (three days). He had some bacteruria on recent culture, but is asymptomatic. Pt states he feels well, denies flank pain, pelvic pain, dsyruia, sensation of urgency, fatigue/malaise/brain fog. creatinine has improved to 1.99 on 01/23. Was 3.6 on discharge 12/30. Has over 6 grams of protein in his urine. 24 hour urine creatinine clearance 38.9. No monoclonal proteins detected on serum and urine immunofixation. IgA level is elevated at 509. Updated lab work for today is not yet available for review, though patient reports he had it drawn a few minutes ago prior to his appointment. He denies chest pain, shortness of breath, abdominal pain, flank/back pain, urinary symptoms (catheter in place- sees urology), lower extremity swelling. Reports he is feeling well, denies fatigue/malaise. Reports he is feeling well and denies any complaints/concerns. [facility] Medical History Hyperlipidemia Hypertension Diabetes Social History Household Members: Spouse Housing: Apartment Do you presently have visiting nurse or other home services: No Patient Tobacco Use Status: Never used Tobacco Second Hand Smoke Exposure: No service: No Review of Systems Const All systems reviewed & are unremarkable except as noted in HPI and below Physical Exam Vital Signs: Last Vital Signs Pulse 69 03/05/25 13:59 BP 144/66 H 03/05/25 13:59 Pulse Ox 99 03/05/25 13:59 Oxygen Delivery Method Room Air 03/05/25 13:59 Const General: comfortable, alert and awake Neck Neck: Yes no JVD Resp Effort & Inspection: normal respiratory effort and able to speak in complete sentences Auscultation: clear to auscultation bilaterally Cardio Jugular venous distension: no JVD Rate: regular rate Rhythm: regular rhythm Heart sounds: S1 normal heart sound present and S2 normal heart sound present GI Palpation (GI): Soft to palpation and nontender General: Yes no CVA tenderness Back/Spine/Pelvis Back: no CVA tenderness Skin Rashes: no rashes Extrem General: No edema Results Reviewed Nephrology Results: Sodium, (135-145) 140 mmol/L 01/23/25 Potassium, (3.3-5.1) 5.2 mmol/L H 01/23/25 Chloride, (96-108) 107 mmol/L 01/23/25 Carbon Dioxide, (22-29) 23 mmol/L 01/23/25 BUN, (9-16) 42 mg/dL H 01/23/25 Creatinine, (0.5-1.4) 1.99 mg/dL H 01/23/25 Calcium, (8.4-10.2) 9.0 mg/dL Δ 01/23/25 Urine Protein, (Neg-Trace) 300 (3+) mg/dL H 01/23/25 Assessment & Plan Assessment & Plan (1) LUDIN (acute kidney injury): Code(s): N17.9 - Acute kidney failure, unspecified Category: Medical (2) Proteinuria: Code(s): R80.9 - Proteinuria, unspecified Category: Medical Qualifiers: Proteinuria type: unspecified Qualified Code(s): R80.9 - Proteinuria, unspecified (3) Acute urinary retention: Code(s): R33.8 - Other retention of urine Category: Medical Plan LUDIN likely secondary to urinary obstruction, though likely also had component of ATN given creatinine did not improve as anticipated, creatinine is continuing to improve gradually- most updated labs still pending. Likely has some baseline renal disease given significant proteinuria- re-check on urine protein/creatinine ratio pending. Diabetic nephropathy on differential. IgA elevated, cannot rule out IgA nephropathy. Given significant improvement in creatinine will hold off on renal biopsy for now and continue to monitor. Patient should eventually be placed back on an ACEi/ARB once renal function returns to baseline/stabilizes, but will need to hold off until renal functions are stable for some time to avoid further renal injury. last serum potassium is mildly elevated at 5.2- patient was eating large amounts of plantains daily, patient reports he has since cut back. Updated serum potassium level pending. Discussed importance of diabetic control, blood pressure control, low salt diet, exercise and maintaining a healthy body weight. Discussed importance of avoiding nsaids. He will return to the office in 6 weeks. Labs prior. Orders: Orders Protein Creatinine Ratio, Ur Today R80.9 - Proteinuria, unspecified Electrolytes 6 Weeks N17.9 - Acute kidney failure, unspecified, R80.9 - Proteinuria, unspecified Blood Urea Nitrogen 6 Weeks N17.9 - Acute kidney failure, unspecified, R80.9 - Proteinuria, unspecified Creatinine 6 Weeks N17.9 - Acute kidney failure, unspecified, R80.9 - Proteinuria, unspecified Coding Level of Care Code Est Pt Level 3 (37584) Diagnoses LUDIN (acute kidney injury) N17.9 Proteinuria, unspecified type R80.9 Proteinuria type: unspecified Acute urinary retention R33.8
== END 2025-03-05 14:16 | disposition home or self-care (01) ==
LOC: HO.HKA 13:54
PROVIDERS: PCP Internal Medicine; Visit Provider Nurse Practitioner Family
DX: N17.9 Acute kidney failure, unspecified (principal); R80.9 Proteinuria, unspecified; R33.8 Other retention of urine
CPT/HCPCS: 99213

== ENCOUNTER 2025-03-30 09:44 | Outpatient (AMB) | payer MEDICARE, OTHER, SELFPAY ==
--- NOTE | 2025-03-30 10:05 | A.OFFVIS_ITS ---
Intake Visit Reasons: CYSTOSCOPY AND VT Intake Note: patient presents today for: cysto/voiding trial urology medications: doxazosin, finasteride blood thinners: aspirin Marine Safety Officer Required: No Accompanied by: Son Allergies No Known Allergies Allergy (Verified 03/30/25 10:06) HPI Comments Details: Sukhjinder is a pleasant male. He is a patient of Dr. Emerson. He is seen for the following urologic conditions - urinary retention Here for cystoscopy Failed voiding trial x2 Cystoscopy shows bilateral lobar hypertrophy Recommend GreenLight laser Failed voiding trial Initiate clean intermittent catheterization every 6 hours for the foreseeable future Lower urinary tract symptoms - urinary retention Hospitalization for urinary obstruction and acute renal injury December 2024 Initial creatinine 4.0 improved to 2.0 by January Failed to prior voiding trials Prior discussion regarding suprapubic tube versus clean intermittent cat heterization PFSH Medical History Hyperlipidemia Hypertension Diabetes Social History Household Members: Spouse Housing: Apartment Do you presently have visiting nurse or other home services: No Patient Tobacco Use Status: Never used Tobacco Second Hand Smoke Exposure: No service: No Review of Systems Const Denies chills and Denies fever(s) Card Reports no additional complaints and Denies syncope Resp Denies cough GI Denies abdominal pain and Denies heartburn Reports as per HPI and Denies change in libido Neuro Denies syncope Psych Denies change in libido Endo Denies change in libido Physical Exam Const General: cooperative, healthy appearing, comfortable and no acute distress Orientation/consciousness: patient oriented x3 HEENT Face and sinus: Yes normal facial exam Mouth: moist mucous membranes Neck Neck: Yes normal visual inspection, Yes full ROM and Yes trachea midline Chest Chest palpation & inspection: normal inspection of the chest Resp Effort & Inspection: normal respiratory effort, able to speak in complete sentences and no respiratory distress GI Inspection: Yes normal to inspection Back/Spine/Pelvis Cervical Spine: normal cervical lordosis Thoracic/Lumbar Spine: thoracic and lumbar spine normal to inspection Skin General skin exam: no rashes or lesions noted Neuro General: patient oriented x3, gait normal, tone normal and moves all extremities Extrem General: Yes normal to inspection and Yes capillary refill normal Office Procedures Cystoscopy Consent Discussed risk and benefit or proposed procedure with the patient. Information consent for procedure given to the patient. Discussed technical aspects, risks, benefits and alternatives in full. Addressed all of the patient's questions and concerns regarding the procedure. The patient demonstrated knowledge and understanding. They wish to proceed with this procedure. Preparation The patient was prepped in the usual manner. A home designer was present and in the room. Genitalia was prepped with betadine solution in a sterile manner. Lidocaine Jelly 2% was placed into the urethra and 16Fr flexible Olympus cystoscope was inserted into the meatus after adequate lubrication. Procedure Cystoscopy performed using a disposable [employer] digital 16 German cystoscope. Meatus circumcised Urethra anterior and posterior urethra normal Prostatic Urethra bilobar hypertrophy Bladder examination with retroflexion of cystoscope Bladder Orifices normal shape and position Bladder Capacity expanded Trabeculations grade 1/2 Cellule Formation None Diverticulum Formation None Mucosal Erythema none Bladder Tumor None 16 Fr vazquez catheter removed prior to the cystoscopy. Patient PVR scan >999ml. Patient states he has not empties his bladder all morning prior to the cystoscopy. Patient attempted to void, but unable. Educated patient on plan for CIC or re-insert vazquez catheter until his Greenlight procedure. Patient decided he wants to intermittently CIC. Educated patient on CIC technique and patient able to successfully self cath. Removed approx 700ml urine from bladder. Educated him to cath every 4 hrs or as needed if he has urge to void and cannot. Patient verbalized understanding of plan. Will fax over 16Fr straight caths for [employer]. [id number] DISPOSABLE SCOPE URO-G FLEXIBLE SCOPE Procedure code (CPT) selection complete Office Meds lidocaine HCl 2 % mucosal jelly in applicator Performing Provider: Jacob Main MD [facility] Administered by: Consuelo Vital RN on 03/30/25 10:14 Dose Route Admin Location Dispensed Lot Number Expiration Date [facility] Mortgage Loan Computation Clerk 10 mL intra-urethral 10 mL nitrofurantoin monohydrate/macrocrystals 100 mg capsule Performing Provider: Jacob Main MD Performing Location: [facility] Administered by: Consuelo Vital RN on 03/30/25 10:14 Dose Route Admin Location Dispensed Lot Number Expiration Date [place] Mortgage Loan Computation Clerk 100 mg PO 1 cap Assessment & Plan Assessment & Plan (1) Urinary retention with incomplete bladder emptying: Code(s): R33.9 - Retention of urine, unspecified Category: Medical Plan We discussed the nature of the decision and reasonable options for performing a prostate intervention. Interventions include TURP, GreenLight laser enucleation of the prostate, GreenLight laser ablation of the prostate, transurethral incision of the prostate, and I-Tend prostate procedure. Options such as medical therapy were discussed. The relative uncertainties and benefits related to each alternate procedure were adequately discussed. General surgical risks including, but not limited to, pain, bleeding, infection, myocardial infarction, pulmonary embolus, deep vein thrombosis and cerebrovascular accident which may result in further hosp italization were discussed. Full disclosure of the procedure as well as all major risks, benefits and complications were discussed including but not limited to damage to the urethra or bladder neck, recurrent BPH, retrograde ejaculation, bladder infection, urge, de kaden frequency, incomplete emptying, dysuria, remote chance of erectile dysfunction, epididymitis, and meatal stenosis. The success rate of the procedure was discussed. Success of the procedure in the short-term does not necessarily guarantee that long-term success will be maintained. Suitable follow up will need to be maintai sofiya. The patient showed understanding of discussion. An opportunity was provided for questions to be answered and wishes to proceed with the following procedure. - GreenLight laser with suprapubic tube cover Orders: Orders AMB Cystoscopy Today R33.8 - Other retention of urine Patient Instructions: This note is constructed using voice recognition software. While every effort has been made to ensure accuracy accounts receivable executive errors may have been included. Imaging studies, laboratory and physical exam results were discussed and reviewed in detail. No major barriers to patient understanding were identified. An opportunity to ask questions regarding the treatment plan was provided. All questions were answered. The patient expressed understanding and agreement with the above treatment plan. The patient is aware they should contact our office by phone for worsening of their current condition or the appearance of new urologic symptoms. Compliance is encouraged with any medications and followup testing that is ordered. It is a privilege to participate in the urologic care of your patient. If you have any questions or concerns regarding treatment for the above conditions, or other urologic issues, please do not hesitate to contact me. The office telephone contact is [phone]. Sincerely, Dr Jacob Main MD, [facility] - Urology Compassionate Specialist Care for the Genitourinary System Coding Level of Care Code Est Pt Level 4 (56679) Diagnoses Urinary retention with incomplete bladder emptying R33.9 CPT Codes Cystoscopy - CPT: 00685-[id number] ([id number])
== END 2025-03-30 11:34 | disposition home or self-care (01) ==
LOC: HO.HUSH 09:45
PROVIDERS: PCP Internal Medicine; Visit Provider Urology
DX: R33.8 Other retention of urine (principal); R33.9 Retention of urine, unspecified
CPT/HCPCS: 52000

== ENCOUNTER → 2025-03-30 09:44 | Outpatient (BNVA) | payer MEDICARE, OTHER, SELFPAY | PROVIDERS: PCP Internal Medicine; Visit Provider Urology | DX: R33.8 Other retention of urine (principal) | CPT/HCPCS: 52000 ==

== ENCOUNTER 2025-04-12 09:36 | Outpatient (REF) | payer MEDICARE, OTHER, SELFPAY ==
[2025-04-12 11:22] LABS: Anion Gap 11 (12-20); Blood Urea Nitrogen 35 mg/dL (9-16); Calcium 9.5 mg/dL (8.4-10.2); Carbon Dioxide 28 mmol/L (22-29); Chloride 106 mmol/L (96-108); Estimated Glomerular Filt Rate 39; Potassium 4.9 mmol/L (3.3-5.1); Sodium 140 mmol/L (135-145)
== END 2025-04-12 09:37 | disposition home or self-care (01) ==
LOC: HO.LAB 09:36
PROVIDERS: Visit Provider Nurse Practitioner Family
DX: N18.30 Chronic kidney disease, stage 3 unspecified (principal); N17.9 Acute kidney failure, unspecified
CPT/HCPCS: 36415; 80048

== ENCOUNTER 2025-04-13 15:19 | Outpatient (REF) | payer MEDICARE, OTHER, SELFPAY ==
--- OUTSIDE RECORDS SUMMARY | 2025-04-13 15:28 | XMS_ITS | Clinical Summary ---
Author Organization [facility] [address] [facility] Address [address] [place] [address] Phone Care Team Providers Care Vacuum Metalizer Operator Name Role Phone Won Emerson MD Primary Care Provider [phone] Allergies No known active allergies Medications aspirin 81 mg EC tablet Take 81 mg by mouth daily. Active ammonium lactate (AMLACTIN) 12 % cream Apply to dry skin on both feet daily 10/04/2018 Active OneTouch Ultra Test test strip Test every day as directed 12/03/2016 Active ciclopirox (LOPROX) 0.77 % gel Apply to toenails once daily 10/04/2018 Active latanoprost (XALATAN) 0.005 % ophthalmic solution apply 1 Drop to the eye at bedtime. 02/20/2019 Active carvediloL (COREG) 12.5 mg tablet TAKE 1 TABLET BY MOUTH EVERY DAY 90 tablet 1 09/21/2024 Active lisinopril (PRINIVIL,ZESTR IL) 40 mg tablet Take 1 tablet (40 mg total) by mouth 1 (one) time each day. 90 each 1 11/23/2024 Active rosuvastatin (CRESTOR) 20 mg tablet TAKE 1 TABLET BY MOUTH EVERYDAY AT BEDTIME 90 tablet 1 12/26/2024 Active metFORMIN (GLUCOPHAGE) 1,000 mg tablet TAKE 1 TABLET BY MOUTH TWICE A DAY WITH FOOD 180 tablet 1 12/26/2024 Active finasteride (PROSCAR) 5 mg tablet Take 1 tablet (5 mg total) by mouth 1 (one) time each day. 2024 Active doxazosin (CARDURA) 2 mg tablet take 2 tablets (4mg) by mouth at bedtime 2024 Active cefuroxime (CEFTIN) 250 mg tablet Take 1 tablet (250 mg total) by mouth 2 (two) times a day. 2024 Active Active Problems Problem Noted Date Diagnosed Date Glaucoma 05/26/2024 HTN (hypertension) 05/26/2024 Hyperlipidemia 05/26/2024 Type 2 diabetes mellitus wit h neurologic complication, without long-term current use of insulin ([facility] V24, [facility] V28) 05/26/2024 Overweight 09/08/2017 Diabetic peripheral neuropathy ([facility] V24, [facility] V28) 05/26/2016 Bunion of great toe 04/17/2014 Hammer toe 04/17/2014 Encounters Date Type Department Care Team Description 01/23/2025 1:30 PM EDT Office Visit Adult Medicine [address] [phone] Won Emerson MD Obstructive uropathy (Primary Dx); LUDIN (acute kidney injury) ([facility] V24); Hyperkalemia; Primary hypertension; Episode of unresponsiveness from Last 3 Months Immunizations Immunization Administration Dates Next Due Influenza trivalent, 0.5mL [...] History Date Comments Type 2 diabetes mellitus ([facility] V24, [facility] V28) DX:Type 2 diabetes mellitus (HCC) HTN [...] Sign Reading Time Taken Comments Blood Pressure 110/60 01/23/2025 1:06 PM EDT Pulse 86 01/23/2025 1:06 PM EDT Temperature 36.6 C (97.8 F) 01/23/2025 1:06 PM EDT Respiratory Rate 16 11/23/2024 3:05 PM EDT Oxygen Saturation 98% 01/23/2025 1:06 PM EDT Inhaled Oxygen Concentration - - Weight 77.2 kg (170 lb 4.8 oz) 01/23/2025 1:06 P M EDT Height 182.9 cm (6' 0.01 ) 01/23/2025 1:06 PM ED T Body Mass Index 23.09 01/23/2025 1:06 PM EDT Plan of Treatment Upcoming Encounters Date Type Department Care Team (Late st Contact Info) Description 05/29/2025 3:00 PM EST Office Visit Adult Medicine [address] [phone] Won Emerson MD [address] [place] [address] Health Maintenance Due Date Last Done Comments Diabetes: Annual Foot Exam 1950 Diabetes: Annual Retina Eye Exam 1950 Zoster Vaccines (1 of 2) 1992 RSV Immunization Adult Patients (1 - 1-dose 75+ series) 2017 Medicare Annual Wellness Visit 05/23/2022 Social Influencers of Health Screening 05/23/2022 Depression Screening 06/14/2024 Diabetes: Annual Urine Albumin-Creatinine Ratio (uACR) 09/09/2024 09/10/2023 Diabetes: Blood Sugar Control Test (HGBA1C) 09/15/2024 03/17/2024, 03/17/2024 DTaP,Tdap,and Td Vaccines (2 - Td or Tdap) 09/17/2024 09/17/2014 COVID-19 Vaccine (3 - season) 2025 11/07/2020, 10/10/2020 Influenza Vaccine (#1) 2025 , 03/16/2022, 03/27/2020, [...] Procedure Name Priority Date/Time Associated Diagnosis Comments HM FALLS RISK ASSESSMENT Routine 03/24/2024 ANNUAL BMP BLOOD TEST Routine 03/17/2024 HEMOGLOBIN A1C Routine 03/17/2024 LIPID PANEL Routine 03/17/2024 URINE ALBUMIN CREATININE RATIO Routine 09/10/2023 from Last 3 Months or Most Recently Relevant to Health Maintenance Results * Falls Risk Assessment (03/24/2024) Pathologist [facility] Falls Risk Assessment Abstracted Result [facility] Provider HEALTH MAINTENANCE Final Result * Annual BMP Blood Test (03/17/2024) Pathologist [facility] Annual BMP Blood Test Abstracted Result [facility] Provider HEALTH MAINTENANCE Final Result * Hemoglobin A1c (03/17/2024) [facility] Hemoglobin A1C 5.9 <=6.5 % Blood Venous blood specimen / Unknown Result [facility] Provider LAB BLOOD ORDERABLES Viridiana l Result * Lipid panel (03/17/2024) [facility] LDL/HDL Ratio 2 0 - 4 Triglycerides 89 0 - 150 mg/dL Cholesterol 107 0 - 200 mg/dL HDL 58 >=40 mg/dL LDL Cholesterol 32 0 - 100 mg/dL Blood Venous blood specimen / Unknown Result [facility] Provider LAB BLOOD ORDERABLES Viridiana l Result * Urine Albumin Creatinine Ratio (09/10/2023) Pathologist [facility] Urine Albumin Creatinine Ratio Abstracted Result [facility] Provider HEALTH MAINTENANCE Final Result from Last 3 Months or Most Recently Relevant to Health [place] [address] [facility] MEDICARE Care Teams Vacuum Metalizer Operator Relationship Specialty Start Date End Date Won Emerson MD [address] [place] [phone] PCP - General Internal Medicine 11/27/20
[2025-04-13 15:51] LABS: Appearance Urine Cloudy; Glucose Urine UA Negative (Negative); PH 7.0 (5.0-9.0); Specific Gravity - Urine 1.015 (1.005-1.025); UMIC TRIGGER UACC YES
[2025-04-13 15:52] LABS: Protein/Creatinine Ratio, Ur 0.37 (<0.2); Total Protein Urine Random 29 mg/dL (<12)
[2025-04-13 17:03] LABS: UACC Culture Trigger YES
== END 2025-04-13 15:20 | disposition home or self-care (01) ==
LOC: HO.LNP 15:19
PROVIDERS: Visit Provider Nurse Practitioner Family
DX: N17.9 Acute kidney failure, unspecified (principal); R33.8 Other retention of urine; R80.9 Proteinuria, unspecified
CPT/HCPCS: 81001; 82570; 84156; 87086; 87088; 87186

== ENCOUNTER 2025-04-16 14:31 | Outpatient (AMB) | payer MEDICARE, OTHER, SELFPAY ==
[2025-04-16 14:38] VITALS: BP 174/88; PULSE 74; O2SAT 98; BMI 23.7
--- NOTE | 2025-04-16 14:38 | HO.NEPHOV ---
Vital Signs 04/16/25 14:38 Height 6 ft Weight 175 lb BMI 23.7 BP 174/88 H Blood Pressure Location Lt brachial Position Sitting Pulse 74 Pulse Source Pulse Oximeter Pulse Oximetry (%) 98 Oxygen Delivery Method Room Air Intake Visit Reasons: 6-8wk f/u w/labs conf, needs update Medicare Marketing/Sales Person Required: No Accompanied by: Son Allergies No Known Allergies Allergy (Verified 04/16/25 14:39) Medication List - Last Reconciled 04/16/25 by Raymond Jarvis MD latanoprost 0.005% 1 drp ophthalmic (eye) DAILY metformin 1,000 mg PO BIDWM rosuvastatin 20 mg PO BEDTIME HPI Comments Details: The patient is an 84-year-old male presenting with urinary retention and hypertension management. The patient reports ongoing issues with urination, requiring the use of a self-catheter three times a day. He is scheduled for surgery on May 21 to address this issue. The patient has a history of hypertension, with current blood pressure readings noted to be elevated. He was previously on antihypertensive medication, which he has since run out of, contributing to the current elevated readings. Amlodipine has been prescribed to manage his blood pressure, which is safe for his kidney health. The patient is also monitoring his potassium levels, which have shown improvement. [facility] Medical History Hyperlipidemia Hypertension Diabetes Social History Household Members: Spouse Housing: Apartment Do you presently have visiting nurse or other home services: No Patient Tobacco Use Status: Never used Tobacco Second Hand Smoke Exposure: No service: No Review of Systems Const Denies fever(s) and Denies weight loss Card Denies chest pain Resp Denies cough and Denies hemoptysis GI Denies abdominal pain, Denies diarrhea and Denies nausea Musc Denies back pain Neuro Denies focal weakness Physical Exam Vital Signs: Last Vital Signs Pulse 74 04/16/25 14:38 BP 174/88 H 04/16/25 14:38 Pulse Ox 98 04/16/25 14:38 Oxygen Delivery Method Room Air 04/16/25 14:38 BMI result Body Mass Index 23.7 Comfortable Neck supple no JVD. Lungs entry equal no rales. Heart S1-S2 heard no gallop or rub. Abdomen soft nontender. Neuro alert awake oriented. No asterixis. Extremities no edema. Results Reviewed Nephrology Results: Sodium, (135-145) 140 mmol/L 04/12/25 Potassium, (3.3-5.1) 4.9 mmol/L 04/12/25 Chloride, (96-108) 106 mmol/L 04/12/25 Carbon Dioxide, (22-29) 28 mmol/L 04/12/25 BUN, (9-16) 35 mg/dL H 04/12/25 Creatinine, (0.5-1.4) 1.71 mg/dL H 04/12/25 Calcium, (8.4-10.2) 9.5 mg/dL 04/12/25 Urine Protein, (Neg-Trace) 30 (1+) mg/dL H 04/13/25 Urine Creatinine 79.14 mg/dL 04/13/25 Protein/Creatinin Ratio, (<0.2) 0.37 H 04/13/25 Assessment & Plan Assessment & Plan (1) LUDIN (acute kidney injury): Code(s): N17.9 - Acute kidney failure, unspecified Category: Medical Plan History of Present Illness The patient is an 84-year-old male presenting with urinary retention and hypertension management. 1. Acute kidney injury superimposed on CKD Urinary Retention - Scheduled for surgery on May 21 to address urinary retention. - Continues self-catheterization three times daily until surgery. 2. Hypertension - Blood pressure noted to be elevated; previously on antihypertensive medication which has been depleted. - Amlodipine prescribed to manage hypertension, 3. Potassium Level Monitoring Orders: Orders Basic Metabolic Panel 6 Weeks N17.9 - Acute kidney failure, unspecified, R80.9 - Proteinuria, unspecified Complete Blood Count no Diff 6 Weeks N17.9 - Acute kidney failure, unspecified, R80.9 - Proteinuria, unspecified Creatinine Urine 6 Weeks N17.9 - Acute kidney failure, unspecified, R80.9 - Proteinuria, unspecified Total Protein Urine Random 6 Weeks N17.9 - Acute kidney failure, unspecified, R80.9 - Proteinuria, unspecified Vitamin D 25-OH Total 6 Weeks N17.9 - Acute kidney failure, unspecified, R80.9 - Proteinuria, unspecified UA and rflx microscopic 6 Weeks N17.9 - Acute kidney failure, unspecified, R80.9 - Proteinuria, unspecified Medications: New amlodipine 5 mg PO DAILY 30 tabs 2RF Coding Level of Care Code Est Pt Level 4 (50082) Diagnoses LUDIN (acute kidney injury) N17.9
== END 2025-04-16 14:51 | disposition home or self-care (01) ==
LOC: HO.HKA 14:32
PROVIDERS: PCP Internal Medicine; Visit Provider Internal Medicine Hypertension Specialist
DX: N17.9 Acute kidney failure, unspecified (principal)
CPT/HCPCS: 99214

== ENCOUNTER → 2025-04-16 14:31 | Outpatient (BNVA) | payer MEDICARE, OTHER, SELFPAY | PROVIDERS: PCP Internal Medicine; Visit Provider Internal Medicine Hypertension Specialist | DX: I10 Essential (primary) hypertension (principal); N17.9 Acute kidney failure, unspecified; R33.9 Retention of urine, unspecified | CPT/HCPCS: 99212 ==

== ENCOUNTER 2025-05-21 13:19 | Day surgery (SDC) | payer MEDICARE, OTHER, SELFPAY ==
--- NOTE | 2025-05-16 13:19 | HO.ANESPROP2 ---
HPI - Anesthesia Eval Consult details Narrative: 84yo M for Laser Ablation Prostate w/Green Light Follows Renal for Acute kidney injury superimposed on CKD (self cath TID), HTN PMFSH Active Problems Active Problems: All Active Problems Urinary retention with incomplete bladder emptying (Acute) Proteinuria (Acute) Acute urinary retention (Acute) LUDIN (acute kidney injury) (Acute) Past Medical History Medical History Hyperlipidemia Hypertension Diabetes Social History Social History Household Members: Spouse Housing: Apartment Do you presently have visiting nurse or other home services: No Patient Tobacco Use Status: Never used Tobacco Second Hand Smoke Exposure: No service: No Meds Allergies Allergy/AdvReac Type Severity Reaction Status Date / Time No Known Allergies Allergy Verified 04/16/25 14:39 Home Medications ?Medication ?Instructions ?Recorded ?Confirmed ?Last Taken ?Type latanoprost 0.005 % eye drops 1 drp ophthalmic (eye) DAILY 12/28/24 04/16/25 12/27/24 History metformin 1,000 mg tablet 1,000 mg PO BIDWM 12/28/24 04/16/25 12/27/24 History rosuvastatin 20 mg tablet 20 mg PO BEDTIME 12/28/24 04/16/25 12/27/24 History Assessment and Plan Assessment Anesthesia Assessment: Chart Reviewed
[2025-05-17 07:39] VITALS: BMI 23.7
--- NOTE | 2025-05-21 12:35 | PC.NURSE ---
pt a no show called and left message
[2025-05-21 14:57] LABS: Glucose, Whole Blood 112 mg/dL (60-115)
[2025-05-21 15:00] VITALS: BP 114/84; PULSE 67; RESP 18; TEMP 36.6; O2SAT 99; BMI 23.2
[2025-05-21] MEDS: Lactated Ringers 1,000 ML 100 ML IVCONT (15:17)
--- NOTE | 2025-05-21 16:30 | HO.ANESPROP2 ---
HPI - Anesthesia Eval Consult details Narrative[facility] Active Problems Active Problems: All Active Problems Urinary retention with incomplete bladder emptying (Acute) Proteinuria (Acute) Acute urinary retention (Acute) LUDIN (acute kidney injury) (Acute) Past Medical History Medical History Hyperlipidemia Hypertension Diabetes Family History Family history of problems with anesthesia: No Surgical History History of Problems with Anesthesia: No Social History Social History Household Members: Spouse Housing: Apartment Do you presently have visiting nurse or other home services: No Patient Tobacco Use Status: Never used Tobacco Second Hand Smoke Exposure: No Have you been hit, kicked, punched, or otherwise hurt by someone within the past year? If so, by whom?: No Are you DNR?: No Advance Directives: No Advance Directives Information Provided: Yes service: No Meds Allergies Allergy/AdvReac Type Severity Reaction Status Date / Time No Known Allergies Allergy Verified 04/16/25 14:39 Active Medications: Current Medications Lactated Ringer's (Lr) 1,000 mls @ 100 mls/hr IVCONT .Q10H GIOVANNA Last Admin: 05/21/25 15:17 Dose: 100 mls/hr Home Medications ?Medication ?Instructions ?Recorded ?Confirmed ?Last Taken ?Type latanoprost 0.005 % eye drops 1 drp ophthalmic (eye) DAILY 12/28/24 05/17/25 05/21/25 History metformin 1,000 mg tablet 1,000 mg PO BIDWM 12/28/24 05/17/25 05/21/25 History rosuvastatin 20 mg tablet 20 mg PO BEDTIME 12/28/24 05/17/25 05/20/25 History Exam Height,Weight and Vital Signs: Height 6 ft Weight 77.7 kg Last Vital Signs Temp 98 F 05/21/25 15:00 Pulse 67 05/21/25 15:00 Resp 18 05/21/25 15:00 BP 114/84 05/21/25 15:00 Pulse Ox 99 05/21/25 15:00 O2 Del Method Room Air 05/21/25 15:00 Pertinent Lab Results Pertinent Lab Results: Laboratory Tests 05/21/25 14:50 POC Glucose 112 Airway Mallampati Class: II TM Dist: >3cm Neck ROM: Limited Heart: rrr Lungs: cta Assessment and Plan Assessment Anesthesia Assessment: Anesthesia Plan Discussed and Chart Reviewed Final Anesthetic Review Family History of Problems with Anesthesia: No History of Problems with Anesthesia: No NPO: Yes ASA Class: II Final Preanesthetic Review: No Changes in Pt Med Stat, Meds/Allgs Chart Reviewed, Consent Obtained/Reviewed and Anes Risks/Benef Reviewed Patient Risk: Intermediate Procedure Risk: Intermediate Anesthetic Plan Anesthetic Plan: GA and Agree w/ Assess. and Plan Disposition: Standard PACU
--- NOTE | 2025-05-21 17:10 | MHC.SHP ---
Pre-Procedural Eval Section A - 24 Hr Update-Section A only Date of Service: 05/21/25 The patient is an INPATIENT: No Changes since office visit: No Cold of Flu in the past 2 weeks, No New Medical Problems, No Changes in Medication and No Patient answered all questions The patient has been examined within 24 hours of the surgical procedure. The History & Physical has been completed within 30 days and I have reviewed it.: No Section B - Complete if H&P > 30 days Chief Complaint: Retention of urine, unspecified Details of Present Illness: Urinary retention with bilobar hypertrophy using catheter for laser enucleation of his prostate Relevant Family History (Specify if Yes): No Relevant Social History: None Present Medications: see Short Stay Collaborative assessment Medical History: No relevant PMH History of Previous Operations: No relevant previous surgery Allergies: Allergies Allergy/AdvReac Type Severity Reaction Status Date / Time No Known Allergies Allergy Verified 04/16/25 14:39 Review of Systems Sugical H&P ROS: Negative: Constitution, Cardiovascular, Respiratory, Neurological, Psychiatric, Hem-Onc, Allergic/Immunologic, Gastrointestinal, Genitourinary, Musculoskeletal, Integumentary, Endocrine and Eyes/Ears/Nose/Throat Exam Surgical H&P Exam: Normal: HEENT, Normal: Heart, Normal: Lungs, Normal: Extremities, Normal: Abdomen, Normal: Skin and Normal: Neurological Plan Diagnosis/Plan: Unchanged (Prostate laser enucleation) I have reviewed the history and physical and performed a pertinent physical examination on my patient. No changes have occurred unless specified. Time Spent With Patient Time: Total time managing care of this patient today ____ minutes.
--- NOTE | 2025-05-21 18:41 | W.PM.OPN ---
Operative Note Operative Note Date of Service: 05/21/25 Narrative: PreOperative Diagnosis: Bladder outlet obstruction Post Operative Diagnosis: Bladder outlet obstruction Procedure: GreenLight Laser Enucleation of the prostate CPT 92736 Surgeon: Dr Jacob Main Anesthesia: General History of bladder outlet obstruction. Urinary retention with medication treatment. On cystoscopy in office has trilobar prostate. Recommendation for prostate procedure with laser enucleation of prostate. Risks and benefits have been discussed. Focus was placed on development of retrograde ejaculation which is a normal part of this procedure. Published revision rates are approximately 30-50% at 8-10 years following the procedure. Procedure: After informed consent was verified the patient was brought to the operating room and placed in a supine position. Anesthesia was administered per protocol. Patient was placed in modified dorsal lithotomy position and prepped and draped in a sterile fashion. Safety pause time-out was confirmed. Antibiotics have been given. A Twenty-four [place] Islander laser cystoscope was inserted per urethra. No abnormalities were found of the anterior and bulbar urethra. The prostatic urethra shows trilobar hypertrophy. The bladder was examined and both ureteric orifices were seen in their normal positions away from the area of interest. Bladder trabeculation grade 2. A GreenLight laser with attached pressure bag Normal Saline cooling irrigation was used. At initial setting of 80 sanders incisions were made at the 5 and 7 o'clock position. The incisions were taken down from the bladder neck down to the area just proximal of the veru. These were gradually deepened in order to define the lateral aspects of the median lobe area and separate the lateral lobe areas from the median lobe.. The deep boundary of enucleation was defined by the prostate surgical capsule. Once clearly defined the grooves were extended in the lateral directions in order to create a deep groove and begin to undermined the lateral lobe areas. Significant number of small stones found at surgical capsule. Consistent with imaging. The median lobe was then ablated and enucleated tissue released into the bladder with the laser power increased to 120 W. this was accomplished by approaching the median lobe from each lateral incision and working from lateral to medial. Moderate lobe Once the median lobe area had been cleared, attention was directed to the lateral lobes. Power increased to 140 w Starting with the patient's left lateral lobe. First the 05:00 o'clock groove was further developed. This was moved in the lateral direction to undermine the tissue on the lateral side running from the bladder neck to the prostate apex. The ureteric orifice was used to guide incisions. The laser fiber was placed at the 1 o'clock position and a secondary groove was developed down to the level of prostatic capsule. The creation of a second deep groove defined a segment of intervening tissue similar to a slice of orange. At the apex of the prostate the laser was used to vertically link the two grooves releasing the intervening tissue and creating a segment of tissue. This tissue was then removed with a combination of enucleation and ablation working from the apex toward the bladder neck. A similar procedure was repeated on the patient's right-hand side. The only differences being the position of the lateral groove at the 7 o'clock position and the secondary groove at the 11 o'clock position, Otherwise the procedure was developed in a mirror fashion. After the majority of tissue had been debulked remnant tissue was ablated with the side fire laser and the curve of the prostate followed up each side wall clearly defining the anterior remnant strip that remained between the 11 and 1 o'clock positions. In this case the anterior tissue protruded into the prostatic fossa and was partially ablated with the laser At completion debris and pieces of prostate were removed from the bladder with irrigation. Both ureteric orifices were reviewed again in shown to be patent in away from any areas of energy damage. Fluid was released from the prostate and inflow was ceased in order to evaluate the prostatic fossa for bleeding. The apical area was reviewed and any stray mucosal ooze was controlled. A 22 [place] Islander 30 cc balloon Whyte catheter was placed into the bladder using a flexible stylet. Clear efflux was obtained upon irrigation with a Lisa piston syringe. 50 cc was placed in the balloon and gentle traction was placed. A snap was used to hold tension on the catheter to control bleeding during patient moved and transported. A drainage bag was placed. A belladonna and opiate suppository was placed in order to assist in postprocedure pain management. Once transportation is complete to the PACU the snap will be removed. The patient tolerated the procedure well, he was extubated in the operating and transferred in a stable condition to the recovery area. Total Power 270 kJ Lasing time 35:33 Pathology: Prostate tissue Drains: Whyte catheter
[2025-05-21 18:52] VITALS: BP 123/66; PULSE 65; RESP 16; TEMP 36.3; O2SAT 98
[2025-05-21 18:57] VITALS: BP 130/71; PULSE 66; RESP 15; O2SAT 99
[2025-05-21 19:02] VITALS: BP 130/57; PULSE 63; RESP 16; O2SAT 100
[2025-05-21 19:07] VITALS: BP 132/75; PULSE 62; RESP 16; TEMP 36.4; O2SAT 99
== END 2025-05-21 19:26 | disposition home or self-care (01) ==
PROVIDERS: Visit Provider Urology
PROC: (CPT 52648; principal; 2025-05-21 16:00)
DX: N40.1 Benign prostatic hyperplasia with lower urinary tract symptoms (principal); N13.8 Other obstructive and reflux uropathy; R33.8 Other retention of urine; I10 Essential (primary) hypertension; E78.5 Hyperlipidemia, unspecified; E11.9 Type 2 diabetes mellitus without complications
CPT/HCPCS: 52649; 82947; 88305; J1100; J1956; J2003; J2405; J2704; J3010

== ENCOUNTER → 2025-05-21 13:19 | Outpatient (BNV) | payer MEDICARE, OTHER, SELFPAY | PROVIDERS: Visit Provider Urology | DX: N32.0 Bladder-neck obstruction (principal) | CPT/HCPCS: 52649 ==

== ENCOUNTER → 2025-05-23 08:56 | Outpatient (BNVA) | payer MEDICARE, OTHER, SELFPAY | PROVIDERS: Visit Provider Urology | DX: R33.8 Other retention of urine (principal) | CPT/HCPCS: 51700 ==

== ENCOUNTER 2025-05-28 07:04 | Outpatient (REF) | payer MEDICARE, OTHER, SELFPAY ==
--- OUTSIDE RECORDS SUMMARY | 2025-05-28 07:07 | XMS_ITS | Clinical Summary ---
Author Organization [facility] [address] [facility] Address [address] [place] [address] Phone Care Team Providers Care Tobacco Warehouse Manager Name Role Phone Won Emerson MD Primary Care Provider [phone] Allergies No known active allergies Medications aspirin [...] EVERY DAY 90 tablet 1 5 Active rosuvastatin (CRESTOR) 20 mg tablet TAKE 1 TABLET BY MOUTH EVERYDAY AT BEDTIME 90 tablet 1 5 Active metFORMIN (GLUCOPHAGE) 1,000 mg tablet TAKE 1 TABLET BY MOUTH TWICE A DAY WITH FOOD 180 tablet 1 5 Active finasteride (PROSCAR) 5 mg tablet Take 1 tablet (5 mg total) by mouth 1 (one) time each day. 5 Active doxazosin (CARDURA) 2 mg tablet take 2 tablets (4mg) by mouth at bedtime 5 Active cefuroxime (CEFTIN) 250 mg tablet Take 1 tablet (250 mg total) by mouth 2 (two) times a day. 5 Active lisinopril (PRINIVIL,ZEST RIL) 40 mg tablet TAKE 1 TABLET BY MOUTH 1 TIME EACH DAY. 90 tablet 5 Active lisinopril (PRINIVIL,ZEST RIL) 40 mg tablet Take 1 tablet (40 mg total) by mouth 1 (one) time each day. 90 each 1 5 025 Discontinued Active Problems Problem Noted Date Diagnosed Date Glaucoma 05/26/2024 HTN (hypertension) 05/26/2024 Hyperlipidemia 05/26/2024 Type 2 diabetes mellitus wit h neurologic complication, without long-term current use of insulin 05/26/2024 Overweight 09/08/2017 Diabetic peripheral neuropathy 05/26/2016 Bunion of great toe 04/17/2014 Hammer toe 04/17/2014 Immunizations Immunization Administration Dates Next Due Influenza [...] History Date Comments Type 2 diabetes mellitus (CM S/HCC V24, CMS/HCC V28) DX:Type 2 diabetes mellitus (HCC) HTN [...] on file Sexual Orientation Not on file Last Filed Vital Signs Vital Sign Reading [...] 3:00 PM EST Office Visit Adult Medicine [address] [phone] Won Emerson MD [address] [place] [address] Health Maintenance Due Date Last Done Comments [...] Maintenance Results * Falls Risk Assessment (03/24/2024) [facility] Falls Risk Assessment Abstracted Result [facility] Provider HEALTH MAINTENANCE Final Result * Annual BMP Blood Test (03/17/2024) [facility] Annual BMP Blood Test Abstracted Result [facility] HEALTH MAINTENANCE Final Result * Hemoglobin A1c (03/17/2024) [facility] Hemoglobin A1C 5.9 <=6.5 % Blood Venous blood specimen / Unknown Result [facility] LAB BLOOD ORDERABLES Viridiana l Result * Lipid panel (03/17/2024) [facility] LDL/HDL Ratio 2 0 - 4 Triglycerides 89 0 - 150 mg/dL Cholesterol 107 0 - 200 mg/dL HDL 58 >=40 mg/dL LDL Cholesterol 32 0 - 100 mg/dL Blood Venous blood specimen / Unknown Result [facility] Provider LAB BLOOD ORDERABLES Viridiana l Result * Urine Albumin Creatinine Ratio (09/10/2023) [facility] Urine Albumin Creatinine Ratio Abstracted Result [facility] Provider HEALTH MAINTENANCE Final Result from Last 3 Months or Most Recently Relevant to Health Maintenance Insurance [facility] [employer] Care Teams Tobacco Warehouse Manager Relationship Specialty Start Date End Date Won Emerson MD [address] [place] [address] [phone] PCP - General Internal Medicine 11/27/20
[2025-05-28 07:55] LABS: Hematocrit 34.6 % (42.0-52.0); Hemoglobin 11.4 g/dl (14.0-18.0); Mean Corpuscular HGB Conc 32.9 g/dl (31.0-36.0); Mean Corpuscular Hemoglobin 30.6 pg (27.0-33.0); Mean Corpuscular Volume 93.0 fL (80.0-98.0); NRBC Abs Auto 0.000 X10*3/uL (0.0-0.012); NRBC Pct Auto 0.0 /100WBC (0.0-0.2); Platelet Count 141 X10*3/uL (160-400); Red Blood Count 3.72 X10*6/uL (4.60-5.80); White Blood Count 5.6 X10*3/uL (4.8-10.8)
[2025-05-28 08:38] LABS: Anion Gap 12 (12-20); Blood Urea Nitrogen 32 mg/dL (9-16); Calcium 9.4 mg/dL (8.4-10.2); Carbon Dioxide 26 mmol/L (22-29); Chloride 107 mmol/L (96-108); Estimated Glomerular Filt Rate 37; Potassium 4.5 mmol/L (3.3-5.1); Sodium 140 mmol/L (135-145)
[2025-05-28 08:52] LABS: Appearance Urine Cloudy; Glucose Urine UA Negative (Negative); PH 7.0 (5.0-9.0); Specific Gravity - Urine 1.015 (1.005-1.025); UMIC TRIGGER UA YES
[2025-05-28 09:07] LABS: Total Protein Urine Random 189 mg/dL (<12)
== END 2025-05-28 07:05 | disposition home or self-care (01) ==
LOC: HO.LAB 07:04
PROVIDERS: Internal Medicine Hypertension Specialist; PCP Internal Medicine; Visit Provider Nurse Practitioner Family
DX: N17.9 Acute kidney failure, unspecified (principal); Z79.899 Other long term (current) drug therapy
CPT/HCPCS: 36415; 80048; 81001; 82306; 82570; 84156; 85027; 99212

== ENCOUNTER 2025-05-28 14:25 | Outpatient (AMB) | payer MEDICARE, OTHER, SELFPAY ==
[2025-05-28 14:37] VITALS: BP 138/68; PULSE 77; O2SAT 99; BMI 23.7
--- NOTE | 2025-05-28 14:37 | HO.NEPHOV ---
Vital Signs 05/28/25 14:37 Height 6 ft Weight 175 lb BMI 23.7 BP 138/68 Blood Pressure Location Rt brachial Position Sitting Pulse 77 Pulse Source Pulse Oximeter Pulse Oximetry (%) 99 Oxygen Delivery Method Room Air Intake Visit Reasons: 6 wk fu w/ labs Cargo Surveyor Required: No Accompanied by: Son Allergies No Known Allergies Allergy (Verified 05/28/25 14:39) Medication List - Last Reconciled 05/28/25 by Raymond Jarvis MD amlodipine 5 mg PO DAILY latanoprost 0.005% 1 drp ophthalmic (eye) DAILY metformin 1,000 mg PO BIDWM rosuvastatin 20 mg PO BEDTIME sulfamethoxazole-trimethoprim 400-80 mg (Bactrim) 1 tab PO DAILY HPI Comments Details: History of Present Illness The patient is an 84 year old male presenting for a follow-up visit for management of chronic kidney disease and hypertension, and post-operative assessment following a recent urological procedure. He underwent a Greenlight laser prostatectomy for prostate obstruction approximately one week ago. Post-operatively, he reports he is urinating well. The patient has a history of chronic kidney disease, with his kidney function noted to be as low as 14% in December. His kidney function has subsequently improved to 37-39%. His baseline creatinine is 1.79. His medical history is also significant for hypertension, for which he takes amlodipine. He also takes metformin and was prescribed a 10-day course of Bactrim following his recent surgery, of which he has about 5 tablets remaining. The patient reports he drinks a lot of water. Results - Labs: Recent blood tests show an improvement in kidney function. - Kidney function has improved from 14% in December to a current level of 37-39%. - The patient's baseline creatinine is 1.79 mg/dL. [facility] Medical History Hyperlipidemia Hypertension Diabetes Social History Household Members: Spouse Housing: Apartment Do you presently have visiting nurse or other home services: No Patient Tobacco Use Status: Never used Tobacco Second Hand Smoke Exposure: No service: No Physical Exam Exam Exam: Physical Exam General: Awake. Comfortable. HENT: Neck supple. Mucosa moist. Pulmonary: Lungs aeration equal. No rales. Cardiology: Heart S1-S2 heard. No gallop. Abdomen: Soft. Non tender. Bowel sounds normal. Neurologic: No involuntary movements. No myoclonus. Extremities: No edema. No rash. Vital Signs: Last Vital Signs Pulse 77 05/28/25 14:37 BP 138/68 05/28/25 14:37 Pulse Ox 99 05/28/25 14:37 Oxygen Delivery Method Room Air 05/28/25 14:37 BMI result Body Mass Index 23.7 Results Reviewed Nephrology Results: Hgb, (14.0-18.0) 11.4 g/dl L Today WBC, (4.8-10.8) 5.6 X10*3/uL Today Plt Count, (160-400) 141 X10*3/uL L Today Sodium, (135-145) 140 mmol/L Today Potassium, (3.3-5.1) 4.5 mmol/L Today Chloride, (96-108) 107 mmol/L Today Carbon Dioxide, (22-29) 26 mmol/L Today BUN, (9-16) 32 mg/dL H Today Creatinine, (0.5-1.4) 1.79 mg/dL H Today Calcium, (8.4-10.2) 9.4 mg/dL Today Urine Protein, (Neg-Trace) 300 (3+) mg/dL H Today Urine Creatinine 71.77 mg/dL Today Protein/Creatinin Ratio, (<0.2) 0.37 H 04/13/25 Assessment & Plan Assessment & Plan (1) LUDIN (acute kidney injury): Code(s): N17.9 - Acute kidney failure, unspecified Category: Medical Plan Plan 1. Chronic Kidney Disease - The patient's kidney function has shown significant improvement, increasing from 14% in December to 37-39%, following his prostate surgery, which likely relieved a urinary obstruction. - Further improvement is possible, but stabilization at the current level is also acceptable. - No changes will be made to his current regimen. - He is advised to continue drinking plenty of water. - A follow-up with repeat blood work is scheduled for 5-6 months to monitor his kidney function. 2. Hypertension - The patient's blood pressure is well-controlled, with a recent reading of 130/68 mmHg. - He will continue his current medication, amlodipine, with no changes at this time. 3. Benign Prostatic Hyperplasia With Obstruction - The patient is status post-Greenlight laser prostatectomy with good results, as he is now able to urinate well. - He is to complete his 10-day course of Bactrim, ensuring adequate water intake. Orders: Orders Complete Blood Count no Diff 5 Months N17.9 - Acute kidney failure, unspecified Basic Metabolic Panel 5 Months N17.9 - Acute kidney failure, unspecified Coding Level of Care Code Est Pt Level 4 (27279) Diagnoses LUDIN (acute kidney injury) N17.9
--- OUTSIDE RECORDS SUMMARY | 2025-05-28 20:47 | XMS_ITS | Clinical Summary ---
Author Organization [facility] [address] [facility] Address [address] [place] [address] Phone Care Team Providers Care Client Strategist Name Role Phone Won Emerson MD Primary Care Provider [phone] Allergies No known active allergies Medications aspirin [...] 3:00 PM EST Office Visit Adult Medicine [address] [phone] Won Emerson MD [address] [place] [address] Health Maintenance Due Date Last Done Comments [...] Maintenance Results * Falls Risk Assessment (03/24/2024) [facility] Falls Risk Assessment Abstracted Result [facility] Provider HEALTH MAINTENANCE Final Result * Annual BMP Blood Test (03/17/2024) [facility] Annual BMP Blood Test Abstracted Result [facility] HEALTH MAINTENANCE Final Result * Hemoglobin A1c (03/17/2024) [facility] Hemoglobin A1C 5.9 <=6.5 % Blood Venous blood specimen / Unknown Result [facility] LAB BLOOD ORDERABLES Viridiana l Result * Lipid panel (03/17/2024) [facility] LDL/HDL Ratio 2 0 - 4 Triglycerides 89 0 - 150 mg/dL Cholesterol 107 0 - 200 mg/dL HDL 58 >=40 mg/dL LDL Cholesterol 32 0 - 100 mg/dL Blood Venous blood specimen / Unknown Result [facility] Provider LAB BLOOD ORDERABLES Viridiana l Result * Urine Albumin Creatinine Ratio (09/10/2023) [facility] Urine Albumin Creatinine Ratio Abstracted Result [facility] Provider HEALTH MAINTENANCE Final Result from Last 3 Months or Most Recently Relevant to Health Maintenance Insurance [facility] [employer] Care Teams Client Strategist Relationship Specialty Start Date End Date Won Emerson MD [address] [place] [address] [phone] PCP - General Internal Medicine 11/27/20
== END 2025-05-28 14:48 | disposition home or self-care (01) ==
LOC: HO.HKA 14:26
PROVIDERS: PCP Internal Medicine; Visit Provider Internal Medicine Hypertension Specialist
DX: N17.9 Acute kidney failure, unspecified (principal)
CPT/HCPCS: 99214